=== PATIENT | female | born 1970 | race Two or more races ===

== ENCOUNTER 2025-07-30 22:41 | Inpatient (IN) | payer BC, OTHER ==
[~2025-07-30] VITALS: Ht 160 cm; Wt 110.0 kg
[~2025-07-30 22:41] MED LIST: CARV-214 PO; CARV3.1240 PO; FURO1TAB33 PO; HYDR-5028 PO; POTA-220 PO; SACU1TAB PO; SPIR25TA PO
--- NOTE | 2025-07-30 23:03 | ED.PDOC ---
History of Present Illness HPI Comments 55-year-old female who came to ER for shortness of breath. Patient has a history of hypertension, anxiety and congestive heart failure. Poor compliance to her Lasix. Has been short of breath for the past week progressively worsening. Denies any acute chest pains. No fever noted. Saturating 97% on room air Chief Complaint: Shortness of Breath Time Seen by MD: 23:02 Primary Care Provider: PATOO Reviewed Notes: Nurses Notes Allergies: Coded Allergies: NO KNOWN ALLERGIES (Unverified , 03/24/19) Home Meds Active Scripts Hydroxyzine HCl (Hydroxyzine Hydrochloride) 10 Mg Tab, 10 MG PO BID PRN for 20 Days, #40 TAB Prov:PAYAL HUTCHINSON MD 03/29/19 Potassium Chloride (Klor-Con M20) 20 Meq Tab, 20 MEQ PO DAILY PRN for 20 Days, #20 TAB Prov:PAYAL HUTCHINSON MD 03/29/19 Furosemide (Lasix) 20 Mg Tb, 1 TAB PO DAILY PRN, #30 TAB 5 Refills Prov:PAYAL HUTCHINSON MD 03/29/19 Spironolactone (Aldactone) 25 Mg Tab, 25 MG PO DAILY for 20 Days, #20 TAB Prov:PAYAL HUTCHINSON MD 03/29/19 Carvedilol (COREG) 3.125 Mg Tab, 3.125 MG PO Q12HR for 20 Days, #40 TAB Prov:PAYAL HUTCHINSON MD 03/29/19 Information Source: Patient Mode of Arrival: Ambulatory Past Medical History PAST MEDICAL HISTORY: Anxiety, CHF, Depression, HTN Surgical History: Denies all surgeries 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 Family History Family History: Reviewed,noncontributory to illness Social History Smoker: Non-Smoker Alcohol: Denies ETOH Use Drugs: Denies Drug Use Lives In: Home Constitutional: denies: chills, diaphoresis, fatigue, fever, malaise, sweats, weakness, others EENTM: denies: blurred vision, double vision, ear bleeding, ear discharge, ear drainage, ear pain, ear ringing, eye pain, eye redness, hearing loss, mouth pain, mouth swelling, nasal discharge, nose bleeding, nose congestion, nose pain, photophobia, tearing, throat pain, throat swelling, voice changes, others Respiratory: reports: SOB at rest, shortness of breath, SOB with excertion; denies: cough, hemoptysis, orthopnea, stridor, wheezing, others Cardiovascular: denies: chest pain, dizzy spells, diaphoresis, Dyspnea on exertion, edema, irregular heart beat, left arm pain, lightheadedness, palpitations, PND, syncope, others Gastrointestinal: denies: abdomen distended, abdominal pain, blood streaked bowels, constipated, diarrhea, dysphagia, difficulty swallowing, hematemesis, melena, nausea, poor appetite, poor fluid intake, rectal bleeding, rectal pain, vomiting, others Genitourinary: denies: abnormal vagina bleeding, burning, dyspareunia, dysuria, flank pain, frequency, hematuria, incontinence, pain, , vagina disc harge, urgency, others Neurological: denies: dizziness, fainting, headache, left sided numbness, left sided weakness, numbness, paresthesia, pre-existing deficit, right sided numbness, right sided weakness, seizure, speech problems, tingling, tremors, weakness, others Musculoskeletal: denies: back pain, gout, joint pain, joint swelling, muscle pain, muscle stiffness, neck pain, others Integumetry: denies: bruises, change in color, change in hair/nails, dryness, laceration, lesions, lumps, rash, wounds, others Allergic/Immunocompromised: denies: Difficulty Healing, Frequent Infections, Hives, Itching, others Hematologic/Lymphatic: denies: anemia, blood clots, easy bleeding, easy bruising, swollen glands, others Endocrine: denies: excessive hunger, excessive sweating, excessive thirst, excessive urination, flushing, intolerance to cold, intolerance to heat, unexplained weight gain, unexplained weight loss, others Psychiatric: denies: anxiety, bipolar disorder, depression, hopeless, panic disorder, schizophrenia, sleepless, suicidal, others Physical Exam General Appearance: No Apparent Distress, Normal HEENT: Normal ENT Inspection, Pharynx Normal, TMs Normal Neck: Full Range of Motion, Non-Tender, Normal, Normal Inspection Respiratory: Chest Non-Tender, Lungs Clear, No Accessory Muscle Use, No Respiratory Distress, Normal Breath Sounds Cardiovascular: No Edema, No JVD, No Murmur, No Gallop, Normal Peripheral Pulses, Regular Rate/Rhythm Breast Exam: Deferred Gastrointestinal: No Organomegaly, Non Tender, No Pulsatile Mass, Normal Bowel Sounds, Soft Genitalia: Deferred Pelvic: Deferred Rectal: Deferred Extremities: No calf tenderness, Normal capillary refill, Normal inspection, Normal range of motion, Non-tender, No pedal edema Musculoskeletal : Apperance: Normal Neurologic: Alert, ip/mosaic technician II-XII nml as Tested, No Motor Deficits, Normal Affect, Normal Mood, No Sensory Deficits Cerebellar Function: Normal Reflexes: Normal Skin: Dry, Normal Color, Warm Lymphatic: No Adenopathy Was a procedure done? Was a procedure done?: No Differential Dx Considerations may include: DDX includes but not limited to: asthma, pneumonia, pneumothorax, CHF, coronary ischemia and others X-Ray, Labs, Meds, VS Vital Signs Date Time Temp Pulse Resp B/P (MAP) Pulse Ox O2 Delivery O2 Flow Rate FiO2 07/31/25 00:41 106 22 97 Room Air* 0 21 07/31/25 00:41 98.1 106 22 123/88 (100) 97 98.1 07/30/25 23:58 16 96 Room Air* 0 21 07/30/25 23:45 98.9 87 16 104/66 (79) 96 98.9 07/30/25 23:06 103 07/30/25 22:42 97.6 122 18 144/93 97 97.6 Lab Test 07/31/25 00:46 07/30/25 23:10 Range/Units Troponin I High Sensitivity Pending 128 *H </=34 ng/L White Blood Count 7.0 4.4-10.8 10^3/uL Red Blood Count 4.99 4.0-5.20 10^6/uL Hemoglobin 14.8 12.2-16.2 g/dL Hematocrit 44.6 36.0-46.0 % Mean Corpuscular Volume 89.4 80.0-100.0 fL Mean Corpuscular Hemoglobin 29.6 28.0-32.0 pg Mean Corpuscular Hemoglobin Concent 33.2 32.0-36.0 g/dL Red Cell Distribution Width 14.7 H 11.8-14.3 % Platelet Count 178 140-450 10^3/uL Mean Platelet Volume 9.2 6.9-10.8 fL Neutrophils (%) (Auto) 67.9 37.0-80.0 % Lymphocytes (%) (Auto) 18.9 10.0-50.0 % Monocytes (%) (Auto) 12.2 H 0.0-12.0 % Eosinophils (%) (Auto) 0.2 0.0-7.0 % Basophils (%) (Auto) 0.8 0.0-2.0 % Neutrophils # (Auto) 4.7 1.6-8.6 10 ^3/uL Lymphocytes # (Auto) 1.3 0.4-5.4 10 ^3/uL Monocytes # (Auto) 0.9 0-1.3 10 ^3/uL Eosinophils # (Auto) 0 0-0.8 10 ^3/uL Basophils # (Auto) 0.1 0-0.2 10 ^3/uL Nucleated Red Blood Cells 0.1 % Sodium Level 142 136-145 mmol/L Potassium Level 4.3 3.5-5.1 mmol/L Chloride Level 106 98-107 mmol/L Carbon Dioxide Level 26 20-31 mmol/L Anion Gap 10 5-15 Blood Urea Nitrogen 16 9-23 mg/dL Creatinine 0.91 0.550-1.02 mg/dL Glomerular Filtration Rate Calc 74 >90 mL/min BUN/Creatinine Ratio 17.6 10.0-20.0 Serum Glucose 115 H 74-106 mg/dL Calcium Level 9.0 8.7-10.4 mg/dL Total Bilirubin 2.3 H 0.2-1.0 mg/dL Aspartate Amino Transferase (AST) 29 13-40 U/L Alanine Aminotransferase (ALT) 44 H 7-40 U/L Alkaline Phosphatase 78 46-116 U/L B-Type Natriuretic Peptide 1868.46 0-100 pg/mL Total Protein 6.1 5.7-8.2 g/dL Albumin 4.0 3.2-4.8 g/dL Time of 1ST Reevaluation: 22:59 Reevaluation 1ST: Unchanged Patient Education/Counseling: Diagnosis, Treatment Family Education/Counseling: Diagnosis, Treatment SEPSIS Sepsis Screen Date sepsis recognized/suspect: Jul 30, 2025 Time Sepsis recognized/suspect: 2246 Recent Procedure: No On Antibiotic Therapy: No Respiratory Rate >20: No Heart Rate >90: Yes Temp<36 C (96.8 F) or >38.3 C: No SBP <90 or MAP <65 mmHG: No New Acute Mental Status Change: No Is the patient on CPAP, BIPAP,: No Physician Orders Electrocardigram (07/30/25 22:57) Troponin-I Hs (07/30/25 23:57) Troponin-I Hs (07/31/25 01:57) Chest Xray 1 View (07/30/25 22:57) Vital Signs Date Time Temp Pulse Resp B/P (MAP) Pulse Ox O2 Delivery O2 Flow Rate FiO2 07/31/25 00:41 106 22 97 Room Air* 0 21 07/31/25 00:41 98.1 106 22 123/88 (100) 97 98.1 07/30/25 23:58 16 96 Room Air* 0 21 07/30/25 23:45 98.9 87 16 104/66 (79) 96 98.9 07/30/25 23:06 103 07/30/25 22:42 97.6 122 18 144/93 97 97.6 Laboratory Tests Test 07/30/25 23:10 White Blood Count 7.0 10^3/uL (4.4-10.8) Departure 1 Departure Time of Disposition: 00:52 Impression: Primary Impression: Congestive heart failure Additional Impression: Intermediate coronary syndrome Disposition: ADMITTED INPATIENT Admit to: Med Surg Condition: Guarded Discharged With: Self Comments 55 yo female with h/o CHF now with SOB. CXR shows CHF. BNP elevated. troponin elevated. given aspirin and lasix. patient will need admission for supportive care and further workup Critical Care Note Critical Care Time?: Yes (35 min-critical care time only) Critical care comment: Total critical care time: Approximately 36 minutes Due to a high probability of clinically significant, life threatening deterioration, the patient required my highest level of preparedness to intervene emergently and I personally spent this critical care time directly and personally managing the patient. This critical care time included obtaining a history; examining the patient; pulse oximetry; ordering and review of studies; arranging urgent treatment with development of a management plan; evaluation of patient's response to treatment; frequent reassessment; and, discussions with other providers. This critical care time was performed to assess and manage the high probability of imminent, life-threatening deterioration that could result in multi-organ failure. It was exclusive of separately billable procedures and treating other patients. Stability Stability form required: No Heart Score Heart Score: Heart Score Response (Comments) Value History Slightly Suspicious 0 EKG Normal 0 Age 45-64 1 Risk Factors >3 or Hx ASHD 2 Troponin Normal limit 0 Total 3 I personally scribed for JEANMARIE KENNEDY MD ([email or web address]) on 07/30/25 at 23:02. Electronically submitted by Dhruv Andrea ([email or web address]). JEANMARIE KENNEDY MD Jul 30, 2025 23:02
[2025-07-30 23:20] LABS: Hematocrit 44.6 % (36.0-46.0); Hemoglobin 14.8 g/dL (12.2-16.2); Mean Corpuscular Hemoglobin 29.6 pg (28.0-32.0); Mean Corpuscular Volume 89.4 fL (80.0-100.0); Nucleated Red Blood Cells % 0.1 %
[2025-07-30 23:35] LABS: Albumin 4.0 g/dL (3.2-4.8); Alkaline Phosphatase 78 U/L (46-116); Anion Gap 10 (5-15); BUN/Creatinine Ratio 17.6 (10.0-20.0); Blood Urea Nitrogen 16 mg/dL (9-23); Calcium 9.0 mg/dL (8.7-10.4); Carbon Dioxide 26 mmol/L (20-31); Chloride 106 mmol/L (98-107); Potassium 4.3 mmol/L (3.5-5.1); Sodium 142 mmol/L (136-145); Total Protein 6.1 g/dL (5.7-8.2)
[2025-07-30 23:38] LABS: Alanine Aminotransferase 44 U/L (7-40); Bilirubin, Total 2.3 mg/dL (0.2-1.0); Glucose 115 mg/dL (74-106)
--- NOTE | 2025-07-30 23:56 | DVH ---
CLINICAL HISTORY: SOB. TECHNIQUE: Single frontal view of the chest was obtained. COMPARISON: None available. FINDINGS: Lungs: Mild pulmonary vascular congestion. Otherwise, lungs are clear. No consolidation or alyssa pulmonary edema. Pleura: Pneumothorax or conspicuous pleural effusion. Cardiomediastinal silhouette: Moderately enlarged cardiac silhouette. Normal mediastinal silhouette. Bones: No acute osseous abnormality. Imaged Upper Abdomen: Unremarkable. IMPRESSION: Moderate cardiomegaly with mild pulmonary vascular congestion.
[2025-07-31 00:41] VITALS: PULSE 106; RESP 22; O2SAT 97
[2025-07-31] MEDS: FUROSEMIDE 40 MG/4 ML VIAL IV ONE (00:59)
[2025-07-31] MEDS ORDERED: HYDROcodone-ACET 5/325MG TAB PO PRN (01:00)
[2025-07-31] MEDS ORDERED: NITROGLYCERIN 0.4 MG SL TAB SL PRN (01:00)
[2025-07-31] MEDS ORDERED: ONDANSETRON HCL 4 MG/2 ML VIAL IV PRN (01:00)
[2025-07-31] MEDS ORDERED: MORPHINE SULFATE INJ 2 MG/ml SYRG IV PRN (01:00)
[2025-07-31] MEDS ORDERED: ACETAMINOPHEN 325 MG TAB PO PRN (01:00)
[2025-07-31] MEDS ORDERED: DOCUSATE SOD 100 MG CAP PO PRN (01:00)
--- NOTE | 2025-07-31 01:12 | DVHHP2 ---
History of Present Illness Reason for Visit: Acute exacerbation of congestive failure History of Present Illness The patient is a 55-year-old female with past medical history of depression, hypertension, anxiety, and congestive heart failure who presented to [facility] ED with complaint of shortness of breaths. Patient reports that she has been experiencing difficulty breathing, shortness of breaths at rest, increased work of breathing, getting worse that prompted this visit. Patient was seen and evaluated in the ED, laboratory data shows WBC 7.0, platelets 178, sodi um 142, potassium 4.3, BUN 16, creatinine 0.91, GFR 74, glucose 115, calcium 9.0, BNP 1868.46, troponin 128, total bilirubin 2.3, AST 29, ALT 44, blood pressure 123/88, heart rate 106, temperature 98.1 F, O2 saturation 97% on oxygen. Chest x-ray revealing moderate cardiomegaly with mild pulmonary vascular congestion. Patient was started on IV Lasix, please see medication orders se ction in the computer. On my assessment, patient denies chest pain, no headache, dizziness, diaphoresis, currently on oxygen, no diarrhea, nausea, vomiting, fever, no chills. Patient was admitted for further evaluation and medical management. Past Medical History Anxiety, CHF, Depression, HTN Past Surgical History Denies all surgeries Family History Reviewed, noncontributory to the management of this case. Past Social History The patient lives at home, denies smoking, alcohol or illicit drugs abuse. Review of Systems Constitutional: Yes: Weakness; No: Fever, Chills, Sweats, Malaise, Other Eyes: No: Pain, Vision change, Conjunctivae inflammation, Eyelid inflammation, Other, Redness ENT: No: Ear pain, Ear discharge, Nose pain, Nose discharge, Nose congestion, Mouth pain, Mouth swelling, Throat pain, Throat swelling, Other Respiratory: Shortness of breath, SOB with excertion, Other (SOB at rest); No: Cough, Dry, Wheezing, Hemoptysis, Pleuritic Pain, Sputum, Wheezing Cardiovascular: No: Chest Pain, Palpitations, Orthopnea, Paroxysmal Noc. Dyspnea, Edema, Lt Headedness, Other Gastrointestinal: No: Nausea, Vomiting, Abdominal Pain, Diarrhea, Constipation, Melena, Hematochezia, Other Genitourinary: No Dysuria, No Frequency, No Incontinence, No Hematuria, No Retention, No Other Musculoskeletal: No: other, neck pain, shoulder pain, arm pain, back pain, hand pain, leg pain, foot pain Skin: No: Rash, Lesions, Jaundice, Bruising, Other Neurological: No: Weakness, Numbness, Incoordination, Change in speech, Confusion, Seizures, Other Allergies: Coded Allergies: NO KNOWN ALLERGIES (Unverified , 03/24/19) Exam Vital Signs Vital Signs Date Time Temp Pulse Resp B/P (MAP) Pulse Ox O2 Delivery O2 Flow Rate FiO2 07/31/25 00:41 106 22 97 Room Air* 0 21 07/31/25 00:41 98.1 123/88 (100) 98.1 General Appearance: Alert, Oriented X3, Cooperative, No acute distress HEENT: Atraumatic, PERRLA, EOMI, Mucous membr. moist/pink Respiratory: Normal air movement, Other (Diminished breath sounds) Cardiovascular: Regular rate, Normal S1, Normal S2, No murmurs Abdominal: Normal bowel sounds, Soft, No tenderness, No hepatospenomegaly, No masses Extremities: No clubbing, No cyanosis, No edema, Normal pulses, No tenderness/swelling Skin: No rashes, No breakdown, No significant lesion Neuro: Normal speech, Normal tone, Sensation intact, Cranial nerves 3-12 NL, Reflexes 2+, Other (Generalized weakness) Psych/Mental Status: Mental status NL, Mood NL Labs/Xrays Labs Test 07/31/25 00:46 07/30/25 23:10 Range/Units White Blood Count 7.0 4.4-10.8 10^3/uL Red Blood Count 4.99 4.0-5.20 10^6/uL Hemoglobin 14.8 12.2-16.2 g/dL Hematocrit 44.6 36.0-46.0 % Mean Corpuscular Volume 89.4 80.0-100.0 fL Mean Corpuscular Hemoglobin 29.6 28.0-32.0 pg Mean Corpuscular Hemoglobin Concent 33.2 32.0-36.0 g/dL Red Cell Distribution Width 14.7 H 11.8-14.3 % Platelet Count 178 140-450 10^3/uL Mean Platelet Volume 9.2 6.9-10.8 fL Neutrophils (%) (Auto) 67.9 37.0-80.0 % Lymphocytes (%) (Auto) 18.9 10.0-50.0 % Monocytes (%) (Auto) 12.2 H 0.0-12.0 % Eosinophils (%) (Auto) 0.2 0.0-7.0 % Basophils (%) (Auto) 0.8 0.0-2.0 % Neutrophils # (Auto) 4.7 1.6-8.6 10 ^3/uL Lymphocytes # (Auto) 1.3 0.4-5.4 10 ^3/uL Monocytes # (Auto) 0.9 0-1.3 10 ^3/uL Eosinophils # (Auto) 0 0-0.8 10 ^3/uL Basophils # (Auto) 0.1 0-0.2 10 ^3/uL Nucleated Red Blood Cells 0.1 % Sodium Level 142 136-145 mmol/L Potassium Level 4.3 3.5-5.1 mmol/L Chloride Level 106 98-107 mmol/L Carbon Dioxide Level 26 20-31 mmol/L Anion Gap 10 5-15 Blood Urea Nitrogen 16 9-23 mg/dL Creatinine 0.91 0.550-1.02 mg/dL Glomerular Filtration Rate Calc 74 >90 mL/min BUN/Creatinine Ratio 17.6 10.0-20.0 Serum Glucose 115 H 74-106 mg/dL Calcium Level 9.0 8.7-10.4 mg/dL Total Bilirubin 2.3 H 0.2-1.0 mg/dL Aspartate Amino Transferase (AST) 29 13-40 U/L Alanine Aminotransferase (ALT) 44 H 7-40 U/L Alkaline Phosphatase 78 46-116 U/L B-Type Natriuretic Peptide 1868.46 0-100 pg/mL Total Protein 6.1 5.7-8.2 g/dL Albumin 4.0 3.2-4.8 g/dL PATIENT: ISABEL MCINTYRE ACCT: [id number] UNIT: [id number] : 1970 LOC: ER ROOM / BED: / AGE / SEX: 55 / F ADM STATUS: REG ER SERVICE [id number] ORDERING PHYSICIAN: JEANMARIE KENNEDY MD PROCEDURE(s): CXR1 - CHEST XRAY 1 VIEW REASON: SOB ORDER NUMBER(s): [id number], ACCESSION NUMBER(s): [id number] CLINICAL HISTORY: SOB. TECHNIQUE: Single frontal view of the chest was obtained. COMPARISON: None available. FINDINGS: Lungs: Mild pulmonary vascular congestion. Otherwise, lungs are clear. No consolidation or alyssa pulmonary edema. Pleura: Pneumothorax or conspicuous pleural effusion. Cardiomediastinal silhouette: Moderately enlarged cardiac silhouette. Normal mediastinal silhouette. Bones: No acute osseous abnormality. Imaged Upper Abdomen: Unremarkable. IMPRESSION: Moderate cardiomegaly with mild pulmonary vascular congestion. SEPSIS Sepsis Screen Date sepsis recognized/suspect: Jul 30, 2025 Time Sepsis recognized/suspect: 004 Recent Procedure: No On Antibiotic Therapy: No Respiratory Rate >20: Yes Heart Rate >90: Yes (MD aware) Temp<36 C (96.8 F) or >38.3 C: No SBP <90 or MAP <65 mmHG: No New Acute Mental Status Change: No Is the patient on CPAP, BIPAP,: No Physician Orders Electrocardigram (07/30/25 22:57) Troponin-I Hs (07/30/25 23:57) Troponin-I Hs (07/31/25 01:57) Chest Xray 1 View (07/30/25 22:57) Complete Blood Count (07/31/25 04:00) Comprehensive Metabolic Panel (07/31/25 04:00) Carvedilol Tablet (Coreg Tablet) (07/31/25 10:00) Aspirin Chewable Tablet (07/31/25 10:00) Furosemide Injection (Lasix Injection) (07/31/25 10:00) Admit (07/31/25 00:54) Allergies (07/31/25 00:54) Code Status (07/31/25 00:54) Sodium Chloride Lock (Saline Lock Ns) (07/31/25 06:00) Oxygen Per Hour (07/31/25 00:54) Hydrocodone-Acet 5/325mg Tab ([place] 5/32 (07/31/25 01:00) Ondansetron Hcl (Zofran) (07/31/25 01:00) Docusate Sodium Capsule (Colace Capsule) (07/31/25 01:00) Complete Blood Count (08/01/25 04:00) Comprehensive Metabolic Panel (08/01/25 04:00) Cardiac Diet-2gna,Lofat,Lochol (07/31/25 Breakfast) Echo 2d Mode Cardiac Dop (07/31/25 00:54) Condition: Serious (07/31/25 00:54) Acetaminophen Tablet (Tylenol Tablet) (07/31/25 01:00) Bedrest With Bathroom Privileg (07/31/25 00:54) Sequential Compression Device (07/31/25 ) Nitroglycerin Sublingual (Ntrostat Subli (07/31/25 01:00) Morphine Sulfate Injection (07/31/25 01:00) Stat Ekg For Chest Pain (07/31/25 00:54) Notify Md Of Changes From Base (07/31/25 00:54) Pharmaceutical Worker For 24 Hours (07/31/25 00:54) Emergency Dysrhythmia Protocol (07/31/25 00:54) Rhythm Strips Once Every Shift (07/31/25 00:54) Oxygen By Nasal Cannula (07/31/25 00:54) Vital Signs Date Time Temp Pulse Resp B/P (MAP) Pulse Ox O2 Delivery O2 Flow Rate FiO2 07/31/25 00:41 106 22 97 Room Air* 0 21 07/31/25 00:41 98.1 106 22 123/88 (100) 97 98.1 07/30/25 23:58 16 96 Room Air* 0 21 07/30/25 23:45 98.9 87 16 104/66 (79) 96 98.9 07/30/25 23:06 103 07/30/25 22:42 97.6 122 18 144/93 97 97.6 Laboratory Tests Test 07/30/25 23:10 White Blood Count 7.0 10^3/uL (4.4-10.8) Assessment/Plan Assessment/Plan Acute exacerbation of congestive heart failure Elevated troponin Generalized weakness Plan 1. Admit to telemetry unit 2. Breathing treatment 3. Pain control management 4. Management of fluids and electrolytes 5. Consultation for hospitalist/cardiology 6. Diagnostic tests chest x-ray 7. DVT prophylaxis-on aspirin 8. Repeat labs CBC, CMP in a.m. 9. Continue with current medical management 10. Treatment plan discussed with patient and RN. Patient verbalized understanding. Plan discussed with: Patient, Other (RN) My Orders Orders - ABY PEOPLES DNP Procedure Category Date Status Time Complete Blood Count LAB 07/31/25 Verified 04:00 Comprehensive LAB 07/31/25 Verified Metabolic Panel 04:00 Carvedilol Tablet PHA 07/31/25 Verified (Coreg Tablet) 10:00 Aspirin Chewable PHA 07/31/25 Verified Tablet 10:00 Furosemide Injection PHA 07/31/25 Verified (Lasix Injection) 10:00 Admit ADMIT 07/31/25 Verified 00:54 Allergies [facility] 07/31/25 Verified 00:54 Code Status CODE 07/31/25 Verified 00:54 Sodium Chloride Lock PHA 07/31/25 Verified (Saline Lock Ns) 06:00 Oxygen Per Hour RT 07/31/25 Verified 00:54 Hydrocodone-Acet PHA 07/31/25 Verified 5/325mg Tab ([place] 01:00 Ondansetron Hcl PHA 07/31/25 Verified (Zofran) 01:00 Docusate Sodium PHA 07/31/25 Verified Capsule (Colace 01:00 Complete Blood Count LAB 08/01/25 Verified 04:00 Comprehensive LAB 08/01/25 Verified Metabolic Panel 04:00 Cardiac DIET 07/31/25 Verified Diet-2gna,Lofat,Lochol Breakfast Echo 2d Mode Cardiac US 07/31/25 Verified DOP 00:54 Condition: Serious [facility] 07/31/25 Verified 00:54 Acetaminophen Tablet [facility] 07/31/25 Verified (Tylenol Tablet) 01:00 Bedrest With Bathroom [facility] 07/31/25 Verified Privileg 00:54 Sequential [facility] 07/31/25 Verified Compression Device Nitroglycerin [facility] 07/31/25 Verified Sublingual (Ntrostat 01:00 Morphine Sulfate PHA 07/31/25 Verified Injection 01:00 Stat Ekg For Chest [facility] 07/31/25 Verified Pain 00:54 Notify Of Changes [facility] 07/31/25 Verified From Base 00:54 Pharmaceutical Worker For [facility] 07/31/25 Verified 24 Hours 00:54 Emergency Dysrhythmia [facility] 07/31/25 Verified Protocol 00:54 Rhythm Strips Once [facility] 07/31/25 Verified Every Shift 00:54 Oxygen By Nasal RT 07/31/25 Verified Cannula 00:54 Problem List: (1) Acute exacerbation of congestive heart failure (2) Elevated troponin (3) Generalized weakness Date of Service: Jul 31, 2025 Billing Provider: ABY PEOPLES DNP Common Visit Codes: [id number] INP/OBS CARE (HIGH) ABY PEOPLES DNP Jul 31, 2025 01:11
[2025-07-31 01:53] LABS: Urine Protein, UAD TRACE (Negative)
[2025-07-31 05:32] LABS: Hematocrit 43.1 % (36.0-46.0); Hemoglobin 14.5 g/dL (12.2-16.2); Mean Corpuscular Hemoglobin 29.7 pg (28.0-32.0); Mean Corpuscular Volume 88.2 fL (80.0-100.0); Nucleated Red Blood Cells % 0.1 %
[2025-07-31 05:46] LABS: Albumin 4.1 g/dL (3.2-4.8); Alkaline Phosphatase 68 U/L (46-116); Anion Gap 10 (5-15); BUN/Creatinine Ratio 15.9 (10.0-20.0); Blood Urea Nitrogen 14 mg/dL (9-23); Calcium 9.0 mg/dL (8.7-10.4); Carbon Dioxide 29 mmol/L (20-31); Chloride 104 mmol/L (98-107); Glucose 97 mg/dL (74-106); Potassium 3.7 mmol/L (3.5-5.1); Sodium 143 mmol/L (136-145); Total Protein 6.1 g/dL (5.7-8.2)
[2025-07-31 05:54] LABS: Alanine Aminotransferase 41 U/L (7-40); Bilirubin, Total 2.8 mg/dL (0.2-1.0)
[2025-07-31] MEDS: SODIUM CHLOR 0.9% PF (SALINE LOCK) 10ML VIAL/SYR IV SCH (06:04)
[2025-07-31 07:30] VITALS: PULSE 86; RESP 14; O2SAT 95
[2025-07-31] MEDS: FUROSEMIDE 40 MG/4 ML VIAL IV SCH ×2 (09:37→22:00)
[2025-07-31] MEDS: CARVEDILOL 3.125 MG TAB PO SCH (09:37)
[2025-07-31 11:42] LABS: Thyroid Stimulating Hormone 2.41 uIU/mL (0.55-4.78)
[2025-07-31] MEDS: MAGNESIUM SULFATE 1GM/100ML 100 ML IV SCH (13:45)
[2025-07-31 13:50] LABS: Amphetamine Screen, Urine Neg (NEGATIVE); Barbiturate Scree,Urine Neg (NEGATIVE); Benzodiazephine Screen, Urine Neg (NEGATIVE); Cannabinoid Screen, Urine Neg (NEGATIVE); Cocaine Screen, Urine Neg (NEGATIVE); Opiate Scree,Urine Neg (NEGATIVE); Phencyclidine Screen, Urine Neg (NEGATIVE)
[2025-07-31] MEDS: ENOXAPARIN SOD 40 MG/0.4 ML SYRINGE SC SCH (16:30)
--- NOTE | 2025-07-31 16:30 | DVHPNRES ---
Progress Note Date Seen: Jul 31, 2025 Resident Creating Document: SACHI ARIZA RESIDENT Medical Necessity Reason Pt with a Central, PICC or Fol: No Subjective Review of Systems Patient is 55 years old female with a past medical history of HFrEF 25-30%, hypertension, depression, anxiety came with a complaint of shortness of breaths Functional Class III. As per patient she has been having worsening shortness of breaths for last 1 week associated with PND and orthopnea. Patient also reported palpitation and and nonproductive cough. On further inquiry patient reported bilateral leg swelling for last more than 1 week. Patient denied any fever, chest pain, acute diarrhea, acute joint redness, dysarthria or change in vision. Patient had echo done in March, which revealed EF 25-30%, global hypokinesia. Severe LV and LA and mild RV dilation. Mild eccentric septal hypertrophy.Grade 2 diastolic dysfunction. RVSP 36. Initial lab workup revealed troponin I > 128> 123> 129, BNP 1868, serum bilirubin 2.8, ALT 44, hemoglobin A1c 5.7, TSH 2.41. UDS negative, urinalysis negative. CXR- Moderate cardiomegaly with mild pulmonary vascular congestion. PMH-HFrEF 25-30%, hypertension, depression, anxiety PSH- no surgery per patient Allergy- and kidney Personal History/ Social History- denies smoking/alcoholism/drug abuse, lives with the ROS Cardiovascular- palpitation/PND/orthopnea/shortness of breath Respiratory shortness of breaths, nonproductive cough Gastrointestinal- denies any rectal bleeding, nausea or vomiting Musculoskeletal-denies acute joint swelling or tenderness or redness Neurological- denies acute dysarthria, dysphagia, change in vision Psychiatry- denies depression or SI or HI Skin- denies acute rash or purpura Patient was seen today at bedside Labs and chart reviewed Patient reported feeling better today Pending cardiology consult if patient needs left heart catheterization or not Echo 2D dilated cardiomyopathy, LVEF 20%, major LV systolic dysfunction, severe MR, moderate TR, severe pulmonary hypertension, RVSP 48. Patient Lasix 40 mg IV b.i.d. Restarted patient's home medication carvedilol and Entresto Ordered Jardiance Strict I&O Fluid restriction 1200 mL per 24 hour Objective vital signs Vital Sign Date Time Temp Pulse Resp B/P (MAP) Pulse Ox O2 Delivery O2 Flow Rate FiO2 07/31/25 15:35 85 18 92/61 (71) 98 07/31/25 07:30 97.6 97.6 07/31/25 07:30 Room Air* 0 21 medications Current Medications Medications Dose Ordered Sig/Suzy Route Start Time Stop Time Status Last Admin Dose Admin Carvedilol 3.125 mg Q12HR PO 07/31/25 10:00 07/31/25 09:37 3.125 MG Aspirin 81 mg DAILY PO 07/31/25 10:00 07/31/25 09:37 81 MG Sodium Chloride 10 ml Q8HR IV 07/31/25 06:00 07/31/25 14:02 10 ML Acetaminophen/ Hydrocodone Bitart 1 tab Q4HP PRN PO 07/31/25 01:00 Ondansetron HCl 4 mg Q4HP PRN IV 07/31/25 01:00 Docusate Sodium 100 mg BIDPRN PRN PO 07/31/25 01:00 Acetaminophen 650 mg Q6HP PRN PO 07/31/25 01:00 Nitroglycerin 0.4 mg Q5MINP PRN SL 07/31/25 01:00 Morphine Sulfate 2 mg Q30M PRN IV 07/31/25 01:00 Spironolactone 25 mg DAILY PO 08/01/25 10:00 Sacubitril/ Valsartan 1 tab BID PO 07/31/25 22:00 Empaglifozin 10 mg DAILY PO 08/01/25 10:00 Furosemide 40 mg BID IV 07/31/25 22:00 Examination General examination- awake, alert HEENT- PEERLA, no acute nasal discharge Cardiovascular- S1-S2 audible, rate and rhythm regular, no murmur Respiratory- bilateral lung crackles++ Gastrointestinal-nontender, bowel sound+. Nondistended Musculoskeletal-no acute joint swelling or tenderness or redness Lower extremity- + bilateral leg edema+ Neurological- cranial nerves intact, no acute dysarthria or dysphagia Psychiatry- denies depression or SI or HI Skin- no acute rash or purpura laboratory and microbiology Laboratory Tests 07/31/25 04:45 Test 07/31/25 04:45 Range/Units Serum Glucose 97 74-106 mg/dL Problem List/Assessment/Plan Problem List/Assessment/Plan Assessment and plan # acute hypoxic respiratory failure likely due to acute on chronic HFrEF # acute on chronic heart failure likely due to HFrEF # bilateral leg edema likely due to above -EKG no acute ST-T wave changes -trop I 128> 133> 129 -BNP 1867 -previous echo March,- EF 25-30%, global hypokinesia. Severe LV and LA and mild RV dilation. Mild eccentric septal hypertrophy.Grade 2 diastolic dysfunction. RVSP 36. -Echo 2D dilated cardiomyopathy, LVEF 20%, major LV systolic dysfunction, severe MR, moderate TR, severe pulmonary hypertension, RVSP 48. -pending cardiology consult -on Jardiance/spironolactone/Entresto/carvedilol -continue Lasix 40 IV b.i.d. -strict I&O -fluid restriction 1200 mL/24 hour # NSTEMI type 2 likely due to demand lead ischemia -continue current conservative manage # hypertension -continue Entresto and carvedilol, spironolactone -monitor BP # transaminitis -pending hepatitis panel -ordered liver ultrasound for further evaluation # depression # anxiety -continue monitoring clinically Goals of care, Code status full code; discussed with >15 minutes PUD prophylaxis: Pantoprazole DVT prophylaxis: Lovenox Plan discussed with Dr. Rivero , nursing staff, Total time spent on patient evaluation, chart review, assessment and plan, discussion discussion >35 minutes Plan discussed with: Patient, Other (RN) My Orders My Orders Orders - SACHI ARIZA RESIDENT Procedure Category Date Status Time Vitamin B12 LAB 07/31/25 In Process 10:28 Vitamin D, 25-Hydroxy LAB 07/31/25 In Process 10:28 Folate (Folic Acid) LAB 07/31/25 In Process 10:28 Spironolactone PHA 08/01/25 In Process (Aldactone) 10:00 Sacubitril-Valsartan PHA 07/31/25 In Process (Entresto 24-26 Mg 22:00 Empagliflozin PHA 08/01/25 In Process (Jardiance) 10:00 * Cardiology Consult CONS 07/31/25 Transmitted 10:41 Furosemide Injection PHA 07/31/25 In Process (Lasix Injection) 22:00 Strict I & O MARCELA 07/31/25 In Process 14:47 Maintain Fluid MARCELA 07/31/25 In Process Restrictions 14:47 Visit Coding STANDARD RES Billing Provider: KATHERINE RIVERO MD Date of Service if different f: Jul 31, 2025 Common Visit Codes: [id number] INP/OBS CARE(HIGH) SACHI ARIZA RESIDENT Jul 31, 2025 16:30
[2025-07-31 16:35] VITALS: BP 100/77; PULSE 90; RESP 20; TEMP 98.4; O2SAT 98
--- NOTE | 2025-07-31 17:17 | DVHSR ---
APPROVED REPORT EXAM: Two-dimensional and M-mode echocardiogram with Doppler and color Doppler. Blood Pressure: 107/71 mmHg INDICATION CHF exacerbation, unspecified RISK FACTORS Obesity: Height: 5'3", Weight: 248 DIMENSIONS LVDd 6.9 (3.8-5.7cm) LA (2D) 5.0 (1.9-4.0cm) Aortic Root 2.7 (2.0-3.7cm) LVDs 6.2 (2.5-4.0cm) LA (MM) (1.9-4.0cm) Aortic Cusp Exc 1.5 (1.5-2.0cm) EF (%) 20.0 (55-70%) Rt. Atrium 4.0 (1.9-4.0cm) Asc. Aorta cm IVSd 0.7 (0.7-1.1cm) RV (D) (1.8-2.4cm) PWd 0.7 (0.7-1.1cm) Mitral Valve Mitral Mitral Stenosis E wave 1.39m/s MV Mean GR. mmHg A wave 0.60m/s MV Peak GR. mmHg E/A ratio 2.3 2D MVA cm2 DECEL Time 224ms PRESS 1/2 Time ms Aortic Valve Aortic Valve Aortic Stenosis V1 0.77m/s AO Mean GR. 6mmHg V2 1.68m/s AO Peak GR. 11mmHg LVOT Diameter 2.0 (1.8-2.4cm) Doppler MORALES 1.44cm2 Pulmonic Valve V2 1.02m/s Tricuspid Valve TR Velocity 3.34m/s RVSP 48mmHg Other Information Technically limited study due to body habitus. Conclusion DILATED ALL CARDIAC CHAMBERS MAJOR LV SYSTOLIC DYSFUNCTION LV EF IS ONLY 20% SEVERE MR MODERATE DEGREE TR SEVERE PULMONARY HYPERTENSION RVSP IS 48 MM F HG AND IS CONSIDERED TO BE VERY HIGH IN VIEW OF LOW EF NO EFFUSION
[2025-07-31] MEDS ORDERED: CHOL20007 PO (18:56)
[2025-07-31] MEDS ORDERED: ATOR20TA50 PO (18:56)
--- NOTE | 2025-07-31 19:54 | DVH ---
INDICATION: ENCEPHALITIS, RULE OUT CIRRHOSIS/STEATOSIS TECHNIQUE: Multiple real-time sonographic images of the abdomen were obtained. COMPARISON: None FINDINGS: The liver is homogenous in echogenicity. The liver measures 14.1 cm. No intrahepatic biliary ductal dilatation is noted. The gallbladder wall measures 0.47 cm and is mildly thickened. Questionable shadowing noted from the gallbladder. The common duct Not visible cm and is unremarkable. No pericholecystic fluid is noted. The right kidney measures 11 cm. No hydronephrosis. The pancreas is not well visualized due to obscuration from bowel gas. The visualized portions of the IVC and aorta are grossly unremarkable. IMPRESSION: 1. Common bile duct not visualized. 2. Mild gallbladder wall thickening with acoustic shadowing coming from the gallbladder fossa correlate for history of cholecystectomy. Negative sonographic chavez's sign 3. Right kidney measures 11 cm in length and there is no hydronephrosis or nephrolithiasis.
[2025-07-31 20:00] VITALS: RESP 18
[2025-07-31 21:00] VITALS: BP 87/60; PULSE 77; RESP 17; TEMP 98.4; O2SAT 98
--- NOTE | 2025-07-31 21:05 | ECG ---
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
[2025-07-31] MEDS: SACUBITRIL-VALSARTAN 24mg/26mg TAB PO SCH (22:00)
--- NOTE | 2025-07-31 23:38 | DVHINCON2 ---
Date of service: Jul 31, 2025 Referring Physician Conner Reason for Consultation HF History of Present Illness This is a 55-year-old female with a past medical history of depression, hypertension, anxiety, and congestive heart failure who presented to the ED with a complaint of shortness of breath. Patient reports that she has been experiencing difficulty breathing, shortness of breaths at rest, increased work of breathing. 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 Chest x-ray revealed moderate cardiomegaly with mild pulmonary vascular congestion. Patient was admitted to the hospital. I am asked to consult on this patient. Family History: FH: myocardial infarction G8 MOTHER, Onset:Unknown FHx: supraventricular tachycardia G8 FATHER, Onset:Unknown Allergies: Coded Allergies: NO KNOWN ALLERGIES (Unverified , 03/24/19) Home Meds Active Scripts Hydroxyzine HCl (Hydroxyzine Hydrochloride) 10 Mg Tab, 10 MG PO BID PRN for 20 Days, #40 TAB Prov:PAYAL HUTCHINSON MD 03/29/19 Potassium Chloride (Klor-Con M20) 20 Meq Tab, 20 MEQ PO DAILY PRN for 20 Days, #20 TAB Prov:PAYAL HUTCHINSON MD 03/29/19 Furosemide (Lasix) 20 Mg Tb, 1 TAB PO DAILY PRN, #30 TAB 5 Refills Prov:PAYAL HUTCHINSON MD 03/29/19 Spironolactone (Aldactone) 25 Mg Tab, 25 MG PO DAILY for 20 Days, #20 TAB Prov:PAYAL HUTCHINSON MD 03/29/19 Carvedilol (COREG) 3.125 Mg Tab, 3.125 MG PO Q12HR for 20 Days, #40 TAB Prov:PAYAL HUTCHINSON MD 03/29/19 Reported Medications Cholecalciferol (VITAMIN D3) 2,000 Unit Tab, 1 TAB PO DAILY, #30 TAB 5 Refills 07/31/25 Atorvastatin Calcium (ATORVASTATIN CALCIUM) 20 Mg Tab, 1 TAB PO DAILY, #30 TAB 5 Refills 07/31/25 Sacubitril-Valsartan (Entresto 24-26 mg) 1 Tab Tab, 1 TAB PO, TAB 07/31/25 Current Medications Current Medications Medications (Trade) Dose Ordered Sig/Suzy Route PRN Reason Start Time Stop Time Status Last Admin Carvedilol (Coreg Tablet) 3.125 mg Q12HR PO 07/31/25 10:00 07/31/25 09:37 Aspirin 81 mg DAILY PO 07/31/25 10:00 07/31/25 09:37 Furosemide (Lasix Injection) 40 mg DAILY IV 07/31/25 10:00 07/31/25 12:21 DC 07/31/25 09:37 Sodium Chloride (Saline Lock N[place]) 10 ml Q8HR IV 07/31/25 06:00 07/31/25 14:02 Acetaminophen/ Hydrocodone Bitart ([place] 5/325MG Tab) 1 tab Q4HP PRN PO MODERATE PAIN (4-6 PAIN SCALE) 07/31/25 01:00 Ondansetron HCl (Zofran) 4 mg Q4HP PRN IV NAUSEA / VOMITING 07/31/25 01:00 Docusate Sodium (Colace Capsule) 100 mg BIDPRN PRN PO FOR CONSTIPATION 07/31/25 01:00 Acetaminophen (Tylenol Tablet) 650 mg Q6HP PRN PO PAIN SCALE 1-3 OR TEMP>100.4 07/31/25 01:00 Nitroglycerin (Ntrostat Sublingual) 0.4 mg Q5MINP PRN SL FOR CHEST PAIN 07/31/25 01:00 Morphine Sulfate 2 mg Q30M PRN IV FOR CHEST PAIN 07/31/25 01:00 Spironolactone (Aldactone) 25 mg DAILY PO 08/01/25 10:00 Sacubitril/ Valsartan (Entresto 24-26 Mg tab) 1 tab BID PO 07/31/25 22:00 Empaglifozin (Jardiance) 10 mg DAILY PO 08/01/25 10:00 Magnesium Sulfate/ Dextrose 100 ml @ 100 mls/hr Q1HR IV 07/31/25 13:00 07/31/25 14:59 DC 07/31/25 15:00 Furosemide (Lasix Injection) 40 mg BID IV 07/31/25 22:00 Enoxaparin Sodium (Lovenox) 40 mg DAILY SC 07/31/25 16:30 Review of Systems Constitutional: denies: chills, diaphoresis, fatigue, fever, malaise, sweats, weakness, others EENTM: denies: blurred vision, double vision, ear bleeding, ear discharge, ear drainage, ear pain, ear ringing, eye pain, eye redness, hearing loss, mouth pain, mouth swelling, nasal discharge, nose bleeding, nose congestion, nose pain, photophobia, tearing, throat pain, throat swelling, voice changes, others Respiratory: reports: SOB at rest, shortness of breath, SOB with excertion; denies: cough, hemoptysis, orthopnea, stridor, wheezing, others Cardiovascular: denies: chest pain, dizzy spells, diaphoresis, Dyspnea on exertion, edema, irregular heart beat, left arm pain, lightheadedness, palpitations, PND, syncope, others Gastrointestinal: denies: abdomen distended, abdominal pain, blood streaked bowels, constipated, diarrhea, dysphagia, difficulty swallowing, hematemesis, melena, nausea, poor appetite, poor fluid intake, rectal bleeding, rectal pain, vomiting, others Genitourinary: denies: abnormal vagina bleeding, burning, dyspareunia, dysuria, flank pain, frequency, hematuria, incontinence, pain, , vagina discharge, urgency, others Neurological: denies: dizziness, fainting, headache, left sided numbness, left sided weakness, numbness, paresthesia, pre-existing deficit, right sided numbn ess, right sided weakness, seizure, speech problems, tingling, tremors, weakness, others Musculoskeletal: denies: back pain, gout, joint pain, joint swelling, muscle pain, muscle stiffness, neck pain, others Integumetry: denies: bruises, change in color, change in hair/nails, dryness, laceration, lesions, lumps, rash, wounds, others Allergic/Immunocompromised: denies: Difficulty Healing, Frequent Infections, Hives, Itching, others Hematologic/Lymphatic: denies: anemia, blood clots, easy bleeding, easy bruising, swollen glands, others Endocrine: denies: excessive hunger, excessive sweating, excessive thirst, excessive urination, flushing, intolerance to cold, intolerance to heat, unexplained weight gain, unexplained weight loss, others Psychiatric: denies: anxiety, bipolar disorder, depression, hopeless, panic disorder, schizophrenia, sleepless, suicidal, others Vital Signs Vital Signs Date Time Temp Pulse Resp B/P (MAP) Pulse Ox O2 Delivery O2 Flow Rate FiO2 07/31/25 21:00 98.4 77 17 87/60 (69) 98 98.4 07/31/25 20:00 Room Air* 0 21 Physical Exam GENERAL: Alert and oriented x 3. No acute distress. EYES: PERRL, EOMI. Anicteric. HENT: Moist mucous membranes. LUNGS: Clear to auscultation bilaterally. CARDIOVASCULAR: Regular rate and rhythm. ABDOMEN: Soft, nontender and nondistended. EXTREMITIES: No edema. NEUROLOGIC: No focal neurological deficits. SKIN: Warm, dry. Labs/Diagnostic Data Labs Test 07/31/25 18:00 07/31/25 04:45 07/31/25 02:16 07/31/25 01:41 Range/Units White Blood Count 5.7 4.4-10.8 10^3/uL Red Blood Count 4.89 4.0-5.20 10^6/uL Hemoglobin 14.5 12.2-16.2 g/dL Hematocrit 43.1 36.0-46.0 % Mean Corpuscular Volume 88.2 80.0-100.0 fL Mean Corpuscular Hemoglobin 29.7 28.0-32.0 pg Mean Corpuscular Hemoglobin Concent 33.7 32.0-36.0 g/dL Red Cell Distribution Width 14.5 H 11.8-14.3 % Platelet Count 150 140-450 10^3/uL Mean Platelet Volume 9.4 6.9-10.8 fL Neutrophils (%) (Auto) 63.1 37.0-80.0 % Lymphocytes (%) (Auto) 22.9 10.0-50.0 % Monocytes (%) (Auto) 13.6 H 0.0-12.0 % Eosinophils (%) (Auto) 0.1 0.0-7.0 % Basophils (%) (Auto) 0.3 0.0-2.0 % Neutrophils # (Auto) 3.6 1.6-8.6 10 ^3/uL Lymphocytes # (Auto) 1.3 0.4-5.4 10 ^3/uL Monocytes # (Auto) 0.8 0-1.3 10 ^3/uL Eosinophils # (Auto) 0 0-0.8 10 ^3/uL Basophils # (Auto) 0 0-0.2 10 ^3/uL Nucleated Red Blood Cells 0.1 % Sodium Level 143 136-145 mmol/L Potassium Level 3.7 3.5-5.1 mmol/L Chloride Level 104 98-107 mmol/L Carbon Dioxide Level 29 20-31 mmol/L Anion Gap 10 5-15 Blood Urea Nitrogen 14 9-23 mg/dL Creatinine 0.88 0.550-1.02 mg/dL Glomerular Filtration Rate Calc 77 >90 mL/min BUN/Creatinine Ratio 15.9 10.0-20.0 Serum Glucose 97 74-106 mg/dL Hemoglobin A1c 5.7 <5.7 % A1C Calcium Level 9.0 8.7-10.4 mg/dL Magnesium Level 1.6 1.6-2.6 mg/dL Total Bilirubin 2.8 H 0.2-1.0 mg/dL Aspartate Amino Transferase (AST) 25 13-40 U/L Alanine Aminotransferase (ALT) 41 H 7-40 U/L Alkaline Phosphatase 68 46-116 U/L Lactate Dehydrogenase 290 H 120-246 U/L Total Protein 6.1 5.7-8.2 g/dL Albumin 4.1 3.2-4.8 g/dL Thyroid Stimulating Hormone (TSH) 2.41 0.55-4.78 uIU/mL Troponin I High Sensitivity 129 *H </=34 ng/L Urine Color Light-yellow Yellow Urine Clarity Clear Clear Urine pH 5.5 5.0-9.0 Urine Specific [place] 1.011 1.001-1.035 Urine Protein Trace H Negative Urine Ketones Negative Negative Urine Blood Negative Negative /uL Urine Nitrite Negative Negative Urine Bilirubin Negative Negative Urine Urobilinogen Normal Negative mg/dL Urine Leukocyte Esterase Negative Negative /uL Urine RBC 2 0 - 4 /hpf Urine Microscopic WBC 1 0-5 /HPF Urine Squamous Epithelial Cells Few <5 /hpf Urine Bacteria None seen None Seen /hpf Urine Mucus Few None Seen Urine Glucose Normal Normal mg/dL Urine Opiates Screen Neg NEGATIVE Urine Fentanyl Screen Neg NEGATIVE Urine Barbiturates Screen Neg NEGATIVE Urine Phencyclidine Screen Neg NEGATIVE Urine Amphetamines Screen Neg NEGATIVE Urine Benzodiazepines Screen Neg NEGATIVE Urine Cocaine Screen Neg NEGATIVE Urine Cannabinoids Screen Neg NEGATIVE Test 07/30/25 23:10 Range/Units B-Type Natriuretic Peptide 1868.46 0-100 pg/mL Assessment Acute hypoxic respiratory failure. Acute on chronic heart failure likely due to HFrEF. Bilateral leg edema likely. NSTEMI type 2 likely due to demand lead ischemia. Hypertension. Transaminitis. Depression. Anxiety. Plan/Recommendation I agree with your ongoing assessment and care of plan. Echocardiogram. Morphine and [place] for pain management. Aspirin. Coreg. DVT prophylactics. Diuretics with Lasix. Entresto. Additional plan as per the hospital course. A total of 45 minutes was spent reviewing the patient record, examining the patient, making a diagnostic and therapeutic plan, discussing this plan with medical personnel, following up on diagnostic studies and following the patient for clinical stability excluding any and all procedures. At least 50% of this time was spent in direct, [id number] contact. Plan discussed with: Patient OLGA MEDRANO MD Jul 31, 2025 23:21
[2025-08-01] VITALS (9 sets, daily range): BP systolic 87–112; BP diastolic 51–73; PULSE 77–114; RESP 16–18; TEMP 97.5–99; O2SAT 95–100
[2025-08-01] MEDS: ALBUMIN 5% 250 ML IV ONE (01:10)
[2025-08-01 05:57] LABS: Hematocrit 41.1 % (36.0-46.0); Hemoglobin 13.8 g/dL (12.2-16.2); Mean Corpuscular Hemoglobin 29.6 pg (28.0-32.0); Mean Corpuscular Volume 88.4 fL (80.0-100.0); Nucleated Red Blood Cells % 0.0 %
[2025-08-01 06:21] LABS: Alanine Aminotransferase 31 U/L (7-40); Alkaline Phosphatase 57 U/L (46-116); Anion Gap 11 (5-15); BUN/Creatinine Ratio 19.1 (10.0-20.0); Blood Urea Nitrogen 18 mg/dL (9-23); Carbon Dioxide 29 mmol/L (20-31); Chloride 103 mmol/L (98-107); Glucose 97 mg/dL (74-106); Potassium 3.9 mmol/L (3.5-5.1); Sodium 143 mmol/L (136-145)
[2025-08-01 06:22] LABS: Magnesium 2.0 mg/dL (1.6-2.6); Total Protein 5.8 g/dL (5.7-8.2)
[2025-08-01 06:23] LABS: Albumin 3.8 g/dL (3.2-4.8)
[2025-08-01 06:28] LABS: Bilirubin, Total 2.8 mg/dL (0.2-1.0); Calcium 8.6 mg/dL (8.7-10.4)
[2025-08-01] MEDS: SPIRONOLACTONE 25 MG TAB PO SCH (10:00)
[2025-08-01] MEDS: EMPAGLIFLOZIN 10 MG TAB PO SCH (10:00)
[2025-08-01 13:02] LABS: Hepatitis B Surface Antigen Negative (Negative)
[2025-08-01 13:20] LABS: Hepatitis C Antibody Negative (Negative)
--- NOTE | 2025-08-01 17:12 | DVHPNRES ---
Progress Note Date Seen: Aug 01, 2025 Resident Creating Document: ALEKS BINGHAM RESIDENT Medical Necessity Reason Pt with a Central, PICC or Fol: No Subjective Review of Systems HPI: Patient is 55 years old female with a past medical history of HFrEF 25-30%, hypertension, depression, anxiety came with a complaint of shortness of breaths Functional Class III. As per patient she has been having worsening shortness of breaths for last 1 week associated with PND and orthopnea. Patient also reported palpitation and and nonproductive cough. On further inquiry patient reported bilateral leg swelling for last more than 1 week. Patient denied any fever, chest pain, acute diarrhea, acute joint redness, dysarthria or change in vision. Patient had echo done in March, which revealed EF 25-30%, global hypokinesia. Severe LV and LA and mild RV dilation. Mild eccentric septal hypertrophy.Grade 2 diastolic dysfunction. RVSP 36. Initial lab workup revealed troponin I > 128> 123> 129, BNP 1868, serum bilirubin 2.8, ALT 44, hemoglobin A1c 5.7, TSH 2.41. UDS negative, urinalysis negative. CXR- Moderate cardiomegaly with mild pulmonary vascular congestion. PMH-HFrEF 25-30%, hypertension, depression, anxiety PSH- no surgery per patient Allergy- and kidney Personal History/ Social History- denies smoking/alcoholism/drug abuse, lives with the Patient was seen and examined at bedside today. She reports feeling shortness of breaths. Her nasal cannula oxygen was increased to 4 L due to orthopnea and paroxysmal nocturnal dyspnea. The nasal cannula oxygen was tapered to 2 L later during the day. Objective vital signs Vital Sign Date Time Temp Pulse Resp B/P (MAP) Pulse Ox O2 Delivery O2 Flow Rate FiO2 08/01/25 13:00 98.2 114 18 112/70 (84) 97 98.2 08/01/25 08:00 Room Air* 0 21 Total Intake and Output 07/31/25 07/31/25 08/01/25 15:00 23:00 07:00 Intake Total 240 ml Balance 240 ml medications Current Medications Medications Dose Ordered Sig/Suzy Route Start Time Stop Time Status Last Admin Dose Admin Carvedilol 3.125 mg Q12HR PO 07/31/25 10:00 08/01/25 10:00 3.125 MG Aspirin 81 mg DAILY PO 07/31/25 10:00 08/01/25 10:00 81 MG Sodium Chloride 10 ml Q8HR IV 07/31/25 06:00 08/01/25 11:11 10 ML Acetaminophen/ Hydrocodone Bitart 1 tab Q4HP PRN PO 07/31/25 01:00 Ondansetron HCl 4 mg Q4HP PRN IV 07/31/25 01:00 Docusate Sodium 100 mg BIDPRN PRN PO 07/31/25 01:00 Acetaminophen 650 mg Q6HP PRN PO 07/31/25 01:00 Nitroglycerin 0.4 mg Q5MINP PRN SL 07/31/25 01:00 Morphine Sulfate 2 mg Q30M PRN IV 07/31/25 01:00 Spironolactone 25 mg DAILY PO 08/01/25 10:00 08/01/25 10:00 25 MG Sacubitril/ Valsartan 1 tab BID PO 07/31/25 22:00 08/01/25 10:00 1 TAB Empaglifozin 10 mg DAILY PO 08/01/25 10:00 08/01/25 10:00 10 MG Furosemide 40 mg BID IV 07/31/25 22:00 08/01/25 10:00 40 MG Enoxaparin Sodium 40 mg DAILY SC 07/31/25 16:30 Examination Pt is lying on bed General Appearance: Alert, Oriented X3, Cooperative, Mild distress HEENT: Atraumatic, Mucous membranes moist/pink Respiratory: Bilateral basilar crackles present, Normal air movement, No added sounds Cardiovascular: Regular rate, Normal S1, Normal S2, No murmurs Abdominal/ : Active bowel sounds, Soft, no distention, no tenderness Extremities: No edema, Normal pulses, No tenderness/swelling Skin: No Significant rash, except past surgical scars Neuro: Normal speech, sensorimotor deficits none Psych/Mental Status: Mental status NL, Mood NL Nurse was there as lead janitor during examination laboratory and microbiology Laboratory Tests 08/01/25 05:09 Test 08/01/25 05:09 Range/Units Serum Glucose 97 74-106 mg/dL Labs and/or images reviewed: Labs reviewed by me, Image(s) reviewed by me Problem List/Assessment/Plan Problem List/Assessment/Plan # acute hypoxic respiratory failure likely due to acute on chronic HFrEF # acute on chronic heart failure likely due to HFrEF # bilateral leg edema likely due to above -EKG no acute ST-T wave changes -trop I 128> 133> 129 -BNP 1868 -previous echo March,- EF 25-30%, global hypokinesia. Severe LV and LA and mild RV dilation. Mild eccentric septal hypertrophy.Grade 2 diastolic dysfunction. RVSP 36. -Echo 2D dilated cardiomyopathy, LVEF 20%, major LV systolic dysfunction, severe MR, moderate TR, severe pulmonary hypertension, RVSP 48. -pending cardiology consult -on Jardiance/spironolactone/Entresto/carvedilol -continue Lasix 40 IV b.i.d. -strict I&O -fluid restriction 1200 mL/24 hour -cardiology consultation appreciated, patient is scheduled for left heart catheterization on 08/03/[address] Cain. # NSTEMI type 2 likely due to demand lead ischemia -continue current conservative manage # hypertension -continue Entresto and carvedilol, spironolactone -monitor BP # transaminitis -monitor -ordered liver ultrasound for further evaluation # depression # anxiety -continue monitoring clinically Goals of care, Code status full code; discussed with >15 minutes PUD prophylaxis: Pantoprazole DVT prophylaxis: Lovenox Plan discussed with Dr. Wilson, nursing staff, Total time spent on patient evaluation, chart review, assessment and plan, discussion discussion >35 minutes Plan discussed with: Patient, Other (RN) Plan discussed with: Patient, Other (RN) Visit Coding STANDARD RES Billing Provider: KATHERINE WILSON MD Date of Service if different f: Aug 01, 2025 Common Visit Codes: [id number] INP/OBS CARE (HIGH), [id number] INP/OBS CARE(HIGH) Secondary Visit Codes: [id number] CARE PLAN 30 MINUTES ALEKS BINGHAM Aug 01, 2025 17:12 KATHERINE WILSON MD Aug 02, 2025 18:52
[2025-08-02] VITALS (8 sets, daily range): BP systolic 82–108; BP diastolic 60–77; PULSE 83–94; RESP 16–19; TEMP 97–99; O2SAT 94–100
--- NOTE | 2025-08-02 00:43 | DVHPN2 ---
Progress Note - Dictate Date Seen: Aug 01, 2025 Medical Necessity Reason Pt with a Central, PICC or Fol: No Subjective Patient was seen and evaluated in follow up. Patient is c/o SOB. Patient was on 4 LPM NC earlier today and was tapered down this evening. CBC and chemistry panel are unremarkable. Echocardiogram is pending. Telemetry reviewed. vital signs Vital Sign Date Time Temp Pulse Resp B/P (MAP) Pulse Ox O2 Delivery O2 Flow Rate FiO2 08/01/25 21:58 114/86 08/01/25 21:58 94 08/01/25 20:52 98.3 18 100 98.3 08/01/25 08:00 Room Air* 0 21 Total Intake and Output 08/01/25 08/01/25 08/02/25 15:00 23:00 07:00 Intake Total 750 ml 800 ml Balance 750 ml 800 ml medications Current Medications Medications Dose Ordered Sig/Suzy Route Start Time Stop Time Status Last Admin Dose Admin Carvedilol 3.125 mg Q12HR PO 07/31/25 10:00 08/01/25 10:00 3.125 MG Aspirin 81 mg DAILY PO 07/31/25 10:00 08/01/25 10:00 81 MG Sodium Chloride 10 ml Q8HR IV 07/31/25 06:00 08/01/25 21:58 10 ML Acetaminophen/ Hydrocodone Bitart 1 tab Q4HP PRN PO 07/31/25 01:00 Ondansetron HCl 4 mg Q4HP PRN IV 07/31/25 01:00 Docusate Sodium 100 mg BIDPRN PRN PO 07/31/25 01:00 Acetaminophen 650 mg Q6HP PRN PO 07/31/25 01:00 Nitroglycerin 0.4 mg Q5MINP PRN SL 07/31/25 01:00 Morphine Sulfate 2 mg Q30M PRN IV 07/31/25 01:00 Spironolactone 25 mg DAILY PO 08/01/25 10:00 08/01/25 10:00 25 MG Sacubitril/ Valsartan 1 tab BID PO 07/31/25 22:00 08/01/25 10:00 1 TAB Empaglifozin 10 mg DAILY PO 08/01/25 10:00 08/01/25 10:00 10 MG Furosemide 40 mg BID IV 07/31/25 22:00 08/01/25 21:58 40 MG Enoxaparin Sodium 40 mg DAILY SC 07/31/25 16:30 objective GENERAL: Alert and oriented x 3. No acute distress. EYES: PERRL, EOMI. Anicteric. HENT: Moist mucous membranes. LUNGS: Clear to auscultation bilaterally. CARDIOVASCULAR: Regular rate and rhythm. ABDOMEN: Soft, nontender and nondistended. EXTREMITIES: No edema. NEUROLOGIC: No focal neurological deficits. SKIN: Warm, dry. laboratory and microbiology Laboratory Tests 08/01/25 05:09 Test 08/01/25 05:09 Range/Units Serum Glucose 97 74-106 mg/dL Problem List Acute hypoxic respiratory failure. Acute on chronic heart failure likely due to HFrEF. Bilateral leg edema likely. NSTEMI type 2 likely due to demand lead ischemia. Hypertension. Transaminitis. Depression. Anxiety. Assessment/Plan Continued all current supportive medical care. Echocardiogram. Morphine and Tyronza for pain management. Aspirin. Coreg. DVT prophylactics. Diuretics with Lasix. Entresto. Additional plan as per the hospital course. Plan discussed with: Patient OLGA MEDRANO MD Aug 02, 2025 00:43
[2025-08-02 06:08] LABS: Hematocrit 43.1 % (36.0-46.0); Hemoglobin 14.3 g/dL (12.2-16.2); Mean Corpuscular Hemoglobin 29.6 pg (28.0-32.0); Mean Corpuscular Volume 89.0 fL (80.0-100.0); Nucleated Red Blood Cells % 0.0 %
[2025-08-02 06:44] LABS: Alanine Aminotransferase 32 U/L (7-40); Albumin 4.2 g/dL (3.2-4.8); Alkaline Phosphatase 58 U/L (46-116); Anion Gap 11 (5-15); BUN/Creatinine Ratio 14.3 (10.0-20.0); Blood Urea Nitrogen 14 mg/dL (9-23); Calcium 9.2 mg/dL (8.7-10.4); Glucose 88 mg/dL (74-106); Potassium 4.7 mmol/L (3.5-5.1); Sodium 140 mmol/L (136-145); Total Protein 6.5 g/dL (5.7-8.2)
[2025-08-02 06:46] LABS: Bilirubin, Total 3.1 mg/dL (0.2-1.0); Carbon Dioxide 32 mmol/L (20-31); Chloride 97 mmol/L (98-107)
--- NOTE | 2025-08-02 12:01 | DVH ---
INDICATION: cough TECHNIQUE: Frontal view of the chest. COMPARISON: XY CHEST XRAY 1 VIEW on DOS: 07/30/25 FINDINGS: . The heart size is enlarged. There are no definite infiltrates. There are no effusions. There is no congestive heart failure. IMPRESSION: 1. Cardiomegaly without acute cardiopulmonary disease.
--- NOTE | 2025-08-02 15:12 | DVHPNRES ---
Progress Note Date Seen: Aug 02, 2025 Resident Creating Document: ALEKS BINGHAM RESIDENT Medical Necessity Reason Pt with a Central, PICC or Fol: No Subjective Review of Systems HPI: Patient is 55 years old female with a past medical history of HFrEF 25-30%, hypertension, depression, anxiety came with a complaint of shortness of breaths Functional Class III. As per patient she has been having worsening shortness of breaths for last 1 week associated with PND and orthopnea. Patient also reported palpitation and and nonproductive cough. On further inquiry patient reported bilateral leg swelling for last more than 1 week. Patient denied any fever, chest pain, acute diarrhea, acute joint redness, dysarthria or change in vision. Patient had echo done in March, which revealed EF 25-30%, global hypokinesia. Severe LV and LA and mild RV dilation. Mild eccentric septal hypertrophy.Grade 2 diastolic dysfunction. RVSP 36. Initial lab workup revealed troponin I > 128> 123> 129, BNP 1868, serum bilirubin 2.8, ALT 44, hemoglobin A1c 5.7, TSH 2.41. UDS negative, urinalysis negative. CXR- Moderate cardiomegaly with mild pulmonary vascular congestion. PMH-HFrEF 25-30%, hypertension, depression, anxiety PSH- no surgery per patient Allergy- and kidney Personal History/ Social History- denies smoking/alcoholism/drug abuse, lives with the Patient was seen and examined at bedside today. The patient reports having increased productive cough. She feels congested. She was on room air. She reports her leg swelling improved since yesterday. Objective vital signs Vital Sign Date Time Temp Pulse Resp B/P (MAP) Pulse Ox O2 Delivery O2 Flow Rate FiO2 08/02/25 10:45 67 105/72 08/02/25 09:00 99.0 18 95 99.0 08/01/25 20:25 Room Air* 0 21 Total Intake and Output 08/01/25 08/01/25 08/02/25 15:00 23:00 07:00 Intake Total 750 ml 800 ml 360 ml Balance 750 ml 800 ml 360 ml medications Current Medications Medications Dose Ordered Sig/Suzy Route Start Time Stop Time Status Last Admin Dose Admin Carvedilol 3.125 mg Q12HR PO 07/31/25 10:00 08/02/25 09:45 3.125 MG Aspirin 81 mg DAILY PO 07/31/25 10:00 08/02/25 09:45 81 MG Sodium Chloride 10 ml Q8HR IV 07/31/25 06:00 08/02/25 09:46 10 ML Acetaminophen/ Hydrocodone Bitart 1 tab Q4HP PRN PO 07/31/25 01:00 Ondansetron HCl 4 mg Q4HP PRN IV 07/31/25 01:00 Docusate Sodium 100 mg BIDPRN PRN PO 07/31/25 01:00 Acetaminophen 650 mg Q6HP PRN PO 07/31/25 01:00 Nitroglycerin 0.4 mg Q5MINP PRN SL 07/31/25 01:00 Morphine Sulfate 2 mg Q30M PRN IV 07/31/25 01:00 Spironolactone 25 mg DAILY PO 08/01/25 10:00 08/02/25 09:45 25 MG Empaglifozin 10 mg DAILY PO 08/01/25 10:00 08/02/25 09:45 10 MG Furosemide 40 mg BID IV 07/31/25 22:00 08/02/25 09:45 40 MG Enoxaparin Sodium 40 mg DAILY SC 07/31/25 16:30 Guaifenesin/ Dextromethorphan 10 ml Q4HP PRN PO 08/02/25 11:15 Examination Pt is lying on bed General Appearance: Alert, Oriented X3, Cooperative, Mild distress HEENT: Atraumatic, Mucous membranes moist/pink Respiratory: Mild basilar crackles, Normal air movement, No added sounds Cardiovascular: Regular rate, Normal S1, Normal S2, No murmurs Abdominal/ : Active bowel sounds, Soft, no distention, no tenderness Extremities: 1+ edema, Normal pulses, No tenderness/swelling Skin: No Significant rash, except past surgical scars Neuro: Normal speech, sensorimotor deficits none Psych/Mental Status: Mental status NL, Mood NL Nurse was there as telecom manager during examination laboratory and microbiology Laboratory Tests 08/02/25 05:13 Test 08/02/25 05:13 Range/Units Serum Glucose 88 74-106 mg/dL Labs and/or images reviewed: Labs reviewed by me, Image(s) reviewed by me Problem List/Assessment/Plan Problem List/Assessment/Plan # acute hypoxic respiratory failure likely due to acute on chronic HFrEF # acute on chronic heart failure likely due to HFrEF # bilateral leg edema likely due to above -EKG no acute ST-T wave changes -trop I 128> 133> 129 -BNP 1867 -previous echo March,- EF 25-30%, global hypokinesia. Severe LV and LA and mild RV dilation. Mild eccentric septal hypertrophy.Grade 2 diastolic dysfunction. RVSP 36. -Echo 2D dilated cardiomyopathy, LVEF 20%, major LV systolic dysfunction, severe MR, moderate TR, severe pulmonary hypertension, RVSP 48. -pending cardiology consult -on Jardiance/spironolactone/Entresto/carvedilol -continue Lasix 40 IV b.i.d. -strict I&O -fluid restriction 1200 mL/24 hour -cardiology consultation appreciated, patient is scheduled for left heart catheterization on 08/03/[address] Cain. -patient had an episode of hypotension, with map 58. She was given IV 250 mL bolus. Her Entresto dose reduced to half. # NSTEMI type 2 likely due to demand lead ischemia -continue current conservative manage # hypertension -continue Entresto and carvedilol, spironolactone -monitor BP # transaminitis -monitor -ordered liver ultrasound for further evaluation # depression # anxiety -continue monitoring clinically Goals of care, Code status full code; discussed with >15 minutes PUD prophylaxis: Pantoprazole DVT prophylaxis: Lovenox Plan discussed with Dr. Wilson, nursing staff, Total time spent on patient evaluation, chart review, assessment and plan, discussion discussion >35 minutes Plan discussed with: Patient, Other (RN) Plan discussed with: Patient, Other (RN) My Orders My Orders Orders - ALEKS BINGHAM Procedure Category Date Status Time Npo After Midnight MARCELA 08/02/25 In Process 11:01 Npo (Nothing By DIET 08/03/25 Transmitted Mouth) Diet Breakfast Chest Portable XY 08/02/25 Resulted 11:01 Guaifenesin-Dextromet PHA 08/02/25 In Process Liquid (Robitussin 11:15 Sodium Chloride 0.9% PHA 08/02/25 Logged 15:15 Communication Order ORDERS 08/02/25 Transmitted 15:03 Visit Coding STANDARD RES Billing Provider: KATHERINE WILSON MD Date of Service if different f: Aug 02, 2025 Common Visit Codes: [id number] INP/OBS CARE(HIGH) ALEKS BINGHAM RESIDENT Aug 02, 2025 15:12 KATHERINE WILSON MD Aug 02, 2025 18:40
[2025-08-02] MEDS: SODIUM CHLORIDE 0.9% 250 ML IV ONE (16:00)
--- NOTE | 2025-08-02 23:18 | DVHPN2 ---
Progress Note - Dictate Date Seen: Aug 02, 2025 Medical Necessity Reason Pt with a Central, PICC or Fol: No Subjective Patient was seen and evaluated in follow up. Patient is now on room air. CO2 32. Chest x-ray shows cardiomegaly without acute cardiopulmonary disease. Echocardiogram showed an EF of 20%. Telemetry reviewed. vital signs Vital Sign Date Time Temp Pulse Resp B/P (MAP) Pulse Ox O2 Delivery O2 Flow Rate FiO2 08/02/25 09:45 105/72 08/02/25 09:45 73 08/02/25 09:00 99.0 18 95 99.0 08/01/25 20:25 Room Air* 0 21 Total Intake and Output 08/01/25 08/01/25 08/02/25 15:00 23:00 07:00 Intake Total 750 ml 800 ml 360 ml Balance 750 ml 800 ml 360 ml medications Current Medications Medications Dose Ordered Sig/Suzy Route Start Time Stop Time Status Last Admin Dose Admin Carvedilol 3.125 mg Q12HR PO 07/31/25 10:00 08/02/25 09:45 3.125 MG Aspirin 81 mg DAILY PO 07/31/25 10:00 08/02/25 09:45 81 MG Sodium Chloride 10 ml Q8HR IV 07/31/25 06:00 08/02/25 09:46 10 ML Acetaminophen/ Hydrocodone Bitart 1 tab Q4HP PRN PO 07/31/25 01:00 Ondansetron HCl 4 mg Q4HP PRN IV 07/31/25 01:00 Docusate Sodium 100 mg BIDPRN PRN PO 07/31/25 01:00 Acetaminophen 650 mg Q6HP PRN PO 07/31/25 01:00 Nitroglycerin 0.4 mg Q5MINP PRN SL 07/31/25 01:00 Morphine Sulfate 2 mg Q30M PRN IV 07/31/25 01:00 Spironolactone 25 mg DAILY PO 08/01/25 10:00 08/02/25 09:45 25 MG Sacubitril/ Valsartan 1 tab BID PO 07/31/25 22:00 08/02/25 09:45 1 TAB Empaglifozin 10 mg DAILY PO 08/01/25 10:00 08/02/25 09:45 10 MG Furosemide 40 mg BID IV 07/31/25 22:00 08/02/25 09:45 40 MG Enoxaparin Sodium 40 mg DAILY SC 07/31/25 16:30 Guaifenesin/ Dextromethorphan 10 ml Q4HP PRN PO 08/02/25 11:15 objective GENERAL: Alert and oriented x 3. No acute distress. EYES: PERRL, EOMI. Anicteric. HENT: Moist mucous membranes. LUNGS: Clear to auscultation bilaterally. CARDIOVASCULAR: Regular rate and rhythm. ABDOMEN: Soft, nontender and nondistended. EXTREMITIES: No edema. NEUROLOGIC: No focal neurological deficits. SKIN: Warm, dry. laboratory and microbiology Laboratory Tests 08/02/25 05:13 Test 08/02/25 05:13 Range/Units Serum Glucose 88 74-106 mg/dL Problem List Acute hypoxic respiratory failure. Acute on chronic heart failure likely due to HFrEF. Bilateral leg edema likely. NSTEMI type 2 likely due to demand lead ischemia. Hypertension. Transaminitis. Depression. Anxiety. Assessment/Plan Continued all current supportive medical care. Morphine and [place] for pain management. Aspirin. Coreg. DVT prophylactics. Diuretics with Lasix. Entresto. Additional plan as per the hospital course. Plan discussed with: Patient OLGA MEDRANO MD Aug 02, 2025 14:12
[2025-08-03] VITALS (21 sets, daily range): BP systolic 91–125; BP diastolic 62–83; PULSE 90–108; RESP 13–20; TEMP 97.2–100; O2SAT 93–100
[2025-08-03] MEDS: IODIXANOL 320MG/ML 100ML BTL IV ONE (07:53)
[2025-08-03] MEDS: fentaNYL CITRATE 100 MCG/2 ML VL ONE (08:39)
[2025-08-03] MEDS: HEPARIN SODIUM (PORCINE) 5000 UNITS/ML 1ML VIAL ONE (08:39)
[2025-08-03] MEDS: MIDAZOLAM HCL 2MG/2ML 2ml VIAL (1mg/ml) ONE (08:39)
[2025-08-03] MEDS: VERAPAMIL 2.5MG/ML INJ 2ML VIAL IV ONE (08:39)
[2025-08-03] MEDS: ANGIOMAX 250 MG VIAL IV ONE (08:39)
[2025-08-03] MEDS: LIDOCAINE 2%HCL (LOCAL ANESTH.) INJ 20ML MDV ONE (08:40)
[2025-08-03] MEDS: SODIUM CHL 0.9% 0 ML ONE (08:40)
[2025-08-03] MEDS: NITROGLYCERIN 50MG/250ML 250 ML IV ONE (08:44)
--- NOTE | 2025-08-03 10:54 | DVHOP ---
DATE OF SURGERY: 08/03/2025 TECHNIQUE PERFORMED: * Ultrasound of right radial artery. * Management of conscious sedation. * Ultrasound-guided insertion of 6[place] arterial line from the right radial artery. * Left heart catheterization. * Left ventriculogram. * [place] selective left and right coronary angiography. * Ultrasound of the right femoral venous system. * Insertion of 6[place] venous line in the right femoral vein. * Right heart catheterization. ASSISTANTS: Assisted by Noah Thomas and Poly. COMPLICATIONS: None. INDICATIONS: Dilated cardiomyopathy, ejection fraction in range of less than 20%. DESCRIPTION OF PROCEDURE: The procedure risks, benefits discussed. Counseling done, questions answered. The patient was brought to our roving tester laboratory. The patient's right radial area was thoroughly cleaned with soap and Betadine and lidocaine was given. A 6[place] arterial line was placed and subsequently, we put a TIG catheter, 5-[place] 4.0, and the left coronary angiogram done. Subsequently, with the help of a JR4 catheter, a right coronary angiogram done. With the help of the pigtail catheter, complete left heart cath had been done. The left ventriculogram was done in the right anterior oblique view with a total of 20 mL of dye. Post LV gram, left ventricular angiography had been performed with the help of pull-through technique. Aortic pressure also performed. After that, we have done the right femoral Doppler study. Vein was punctured under ultrasound. A 6-[place] venous line was placed in the right femoral. Subsequently, [place]-No catheter was passed under fluoroscopy and we have done the right heart catheterization. Pulmonary artery wedge, right ventricular pressure, right atrial pressure, all been obtained. Procedure completed. IMPRESSION: * Normal left main. * Normal left anterior descending artery. * Normal, large circumflex obtuse marginal artery. * Large dominant right coronary artery. * The ejection fraction of the left ventricle is 15%. Global hypokinesis of the left ventricle. * The severe pulmonary hypertension, right ventricular and pulmonary artery systolic pressure is in the range of 70. CONCLUSION: End-stage dilated cardiomyopathy, severe pulmonary hypertension. PLAN OF ACTION: Follow this patient. Ultimately, we will need implantable cardioverter with defibrillator. MD ZITA Willis TID: [id number] RECEIPT: [id number]
[2025-08-03 12:53] LABS: Hematocrit 44.6 % (36.0-46.0); Hemoglobin 14.9 g/dL (12.2-16.2); Mean Corpuscular Hemoglobin 29.7 pg (28.0-32.0); Mean Corpuscular Volume 89.2 fL (80.0-100.0); Nucleated Red Blood Cells % 0.1 %
[2025-08-03 13:11] LABS: Albumin 4.3 g/dL (3.2-4.8); Alkaline Phosphatase 64 U/L (46-116); Anion Gap 10 (5-15); BUN/Creatinine Ratio 16.1 (10.0-20.0); Blood Urea Nitrogen 14 mg/dL (9-23); Calcium 9.4 mg/dL (8.7-10.4); Carbon Dioxide 31 mmol/L (20-31); Chloride 98 mmol/L (98-107); Glucose 103 mg/dL (74-106); Potassium 4.1 mmol/L (3.5-5.1); Sodium 139 mmol/L (136-145); Total Protein 6.9 g/dL (5.7-8.2)
[2025-08-03 13:14] LABS: Alanine Aminotransferase 47 U/L (7-40); Bilirubin, Total 2.4 mg/dL (0.2-1.0)
--- NOTE | 2025-08-03 15:34 | DVHPNRES ---
Progress Note Date Seen: Aug 03, 2025 Resident Creating Document: ALEKS BINGHAM RESIDENT Medical Necessity Reason Pt with a Central, PICC or Fol: No Subjective Review of Systems HPI: Patient is 55 years old female with a past medical history of HFrEF 25-30%, hypertension, depression, anxiety came with a complaint of shortness of breaths Functional Class III. As per patient she has been having worsening shortness of breaths for last 1 week associated with PND and orthopnea. Patient also reported palpitation and and nonproductive cough. On further inquiry patient reported bilateral leg swelling for last more than 1 week. Patient denied any fever, chest pain, acute diarrhea, acute joint redness, dysarthria or change in vision. Patient had echo done in March, which revealed EF 25-30%, global hypokinesia. Severe LV and LA and mild RV dilation. Mild eccentric septal hypertrophy.Grade 2 diastolic dysfunction. RVSP 36. Initial lab workup revealed troponin I > 128> 123> 129, BNP 1868, serum bilirubin 2.8, ALT 44, hemoglobin A1c 5.7, TSH 2.41. UDS negative, urinalysis negative. CXR- Moderate cardiomegaly with mild pulmonary vascular congestion. PMH-HFrEF 25-30%, hypertension, depression, anxiety PSH- no surgery per patient Allergy- and kidney Personal History/ Social History- denies smoking/alcoholism/drug abuse, lives with the 08/03/2025: Patient was seen and examined at bedside today swollen left heart catheterization. The patient was sleeping under deep sedation. The procedure was performed successfully. Her vitals are stable. We will continue monitoring. Objective vital signs Vital Sign Date Time Temp Pulse Resp B/P (MAP) Pulse Ox O2 Delivery O2 Flow Rate FiO2 08/03/25 13:00 99.0 98 20 104/74 (84) 97 99.0 08/03/25 08:00 Nasal Cannula* 2 28 Total Intake and Output 08/02/25 08/02/25 08/03/25 15:00 23:00 07:00 Intake Total 480 ml 420 ml Balance 480 ml 420 ml medications Current Medications Medications Dose Ordered Sig/Suzy Route Start Time Stop Time Status Last Admin Dose Admin Carvedilol 3.125 mg Q12HR PO 07/31/25 10:00 08/02/25 09:45 3.125 MG Aspirin 81 mg DAILY PO 07/31/25 10:00 08/02/25 09:45 81 MG Sodium Chloride 10 ml Q8HR IV 07/31/25 06:00 08/03/25 06:27 10 ML Acetaminophen/ Hydrocodone Bitart 1 tab Q4HP PRN PO 07/31/25 01:00 Ondansetron HCl 4 mg Q4HP PRN IV 07/31/25 01:00 Docusate Sodium 100 mg BIDPRN PRN PO 07/31/25 01:00 Acetaminophen 650 mg Q6HP PRN PO 07/31/25 01:00 Nitroglycerin 0.4 mg Q5MINP PRN SL 07/31/25 01:00 Morphine Sulfate 2 mg Q30M PRN IV 07/31/25 01:00 Spironolactone 25 mg DAILY PO 08/01/25 10:00 08/02/25 09:45 25 MG Empaglifozin 10 mg DAILY PO 08/01/25 10:00 08/02/25 09:45 10 MG Furosemide 40 mg BID IV 07/31/25 22:00 08/02/25 21:37 40 MG Enoxaparin Sodium 40 mg DAILY SC 07/31/25 16:30 Guaifenesin/ Dextromethorphan 10 ml Q4HP PRN PO 08/02/25 11:15 Examination Examination Pt is lying on bed General Appearance: Alert, Oriented X3, Cooperative, Mild distress HEENT: Atraumatic, Mucous membranes moist/pink Respiratory: Mild basilar crackles, Normal air movement, No added sounds Cardiovascular: Regular rate, Normal S1, Normal S2, No murmurs Abdominal/ : Active bowel sounds, Soft, no distention, no tenderness Extremities: 1+ edema, Normal pulses, No tenderness/swelling Skin: No Significant rash, except past surgical scars Neuro: Normal speech, sensorimotor deficits none Psych/Mental Status: Mental status NL, Mood NL Nurse was there as telecommunications cable jointer during examination laboratory and microbiology Laboratory Tests 08/03/25 12:42 Test 08/03/25 12:42 Range/Units Serum Glucose 103 74-106 mg/dL Labs and/or images reviewed: Labs reviewed by me, Image(s) reviewed by me Problem List/Assessment/Plan Problem List/Assessment/Plan # acute hypoxic respiratory failure likely due to acute on chronic HFrEF # acute on chronic heart failure likely due to HFrEF, ejection fraction 15% # bilateral leg edema likely due to above -EKG no acute ST-T wave changes -trop I 128> 133> 129 -BNP 1868 -previous echo March,- EF 25-30%, global hypokinesia. Severe LV and LA and mild RV dilation. Mild eccentric septal hypertrophy.Grade 2 diastolic dysfunction. RVSP 36. -Echo 2D dilated cardiomyopathy, LVEF 20%, major LV systolic dysfunction, severe MR, moderate TR, severe pulmonary hypertension, RVSP 48. -pending cardiology consult -on Jardiance/spironolactone/Entresto/carvedilol -continue Lasix 40 IV b.i.d. -strict I&O -fluid restriction 1200 mL/24 hour Left heart catheterization performed on 08/03/2025: Right and left catheterization, right and left coronary artery angiography: LVEF 15%. Global hypokinesis of LV. Severe pulmonary hypertension, right ventricular and pulmonary artery systolic pressure in the range of 70. Normal left main, LAD, LCX marginal artery neck, large dominant RCA. # NSTEMI type 2 likely due to demand lead ischemia -continue current conservative manage # hypertension -continue Entresto and carvedilol, spironolactone -monitor BP # transaminitis -monitor -ordered liver ultrasound for further evaluation # depression # anxiety -continue monitoring clinically Goals of care, Code status full code; discussed with >15 minutes PUD prophylaxis: Pantoprazole DVT prophylaxis: Lovenox Plan discussed with Dr. Wilson, nursing staff, Total time spent on patient evaluation, chart review, assessment and plan, discussion discussion >35 minutes Plan discussed with: Patient, Other (RN) Plan discussed with: Patient, Other (RN) My Orders My Orders Orders - ALEKS BINGHAM Procedure Category Date Status Time Cl Left Heart Cath CL 08/03/25 Taken 08:21 Visit Coding STANDARD RES Billing Provider: KATHERINE WILSON MD Date of Service if different f: Aug 03, 2025 Common Visit Codes: 81137-[id number] INP/OBS CARE(HIGH) ALEKS BINGHAM RESIDENT Aug 03, 2025 15:34
[2025-08-03] MEDS: guaiFENesin-DM 100/10mg/5ml SYR PO PRN (17:09)
[2025-08-04] VITALS (7 sets, daily range): BP systolic 92–105; BP diastolic 64–77; PULSE 73–106; RESP 16–18; TEMP 97.6–98.4; O2SAT 94–97
--- NOTE | 2025-08-04 04:32 | DVHPN2 ---
Progress Note - Dictate Date Seen: Aug 03, 2025 Medical Necessity Reason Pt with a Central, PICC or Fol: No Subjective Patient was seen and evaluated in follow up. Patient underwent left heart catheterization, [place] selective left and right coronary angiography, right heart catheterization. The ejection fraction of the left ventricle is 15%. Global hypokinesis of the left ventricle.The severe pulmonary hypertension, right ventricular and pulmonary artery systolic pressure is in the range of 70. End-stage dilated cardiomyopathy, severe pulmonary hypertension. Ultimately, we will need implantable cardioverter with defibrillator. Telemetry reviewed. vital signs Vital Sign Date Time Temp Pulse Resp B/P (MAP) Pulse Ox O2 Delivery O2 Flow Rate FiO2 08/03/25 12:15 98.1 98 19 98/64 (75) 97 98.1 08/02/25 20:00 Room Air* 0 21 Total Intake and Output 08/02/25 08/02/25 08/03/25 15:00 23:00 07:00 Intake Total 480 ml 420 ml Balance 480 ml 420 ml medications Current Medications Medications Dose Ordered Sig/Suzy Route Start Time Stop Time Status Last Admin Dose Admin Carvedilol 3.125 mg Q12HR PO 07/31/25 10:00 08/02/25 09:45 3.125 MG Aspirin 81 mg DAILY PO 07/31/25 10:00 08/02/25 09:45 81 MG Sodium Chloride 10 ml Q8HR IV 07/31/25 06:00 08/03/25 06:27 10 ML Acetaminophen/ Hydrocodone Bitart 1 tab Q4HP PRN PO 07/31/25 01:00 Ondansetron HCl 4 mg Q4HP PRN IV 07/31/25 01:00 Docusate Sodium 100 mg BIDPRN PRN PO 07/31/25 01:00 Acetaminophen 650 mg Q6HP PRN PO 07/31/25 01:00 Nitroglycerin 0.4 mg Q5MINP PRN SL 07/31/25 01:00 Morphine Sulfate 2 mg Q30M PRN IV 07/31/25 01:00 Spironolactone 25 mg DAILY PO 08/01/25 10:00 08/02/25 09:45 25 MG Empaglifozin 10 mg DAILY PO 08/01/25 10:00 08/02/25 09:45 10 MG Furosemide 40 mg BID IV 07/31/25 22:00 08/02/25 21:37 40 MG Enoxaparin Sodium 40 mg DAILY SC 07/31/25 16:30 Guaifenesin/ Dextromethorphan 10 ml Q4HP PRN PO 08/02/25 11:15 objective GENERAL: Alert and oriented x 3. No acute distress. EYES: PERRL, EOMI. Anicteric. HENT: Moist mucous membranes. LUNGS: Clear to auscultation bilaterally. CARDIOVASCULAR: Regular rate and rhythm. ABDOMEN: Soft, nontender and nondistended. EXTREMITIES: No edema. NEUROLOGIC: No focal neurological deficits. SKIN: Warm, dry. laboratory and microbiology Laboratory Tests 08/03/25 12:42 Test 08/03/25 12:42 Range/Units Serum Glucose 103 74-106 mg/dL Problem List Acute hypoxic respiratory failure. Acute on chronic heart failure likely due to HFrEF. Bilateral leg edema likely. NSTEMI type 2 likely due to demand lead ischemia. Hypertension. Transaminitis. Depression. Anxiety. End-stage dilated cardiomyopathy. Pulmonary hypertension. Assessment/Plan Continued all current supportive medical care. Morphine and [place] for pain management. Aspirin. Coreg. DVT prophylactics. Diuretics with Lasix. Additional plan as per the hospital course. Plan discussed with: Patient OLGA MEDRANO MD Aug 03, 2025 13:28
[2025-08-04 07:10] LABS: Hematocrit 44.4 % (36.0-46.0); Hemoglobin 14.8 g/dL (12.2-16.2); Mean Corpuscular Hemoglobin 29.8 pg (28.0-32.0); Mean Corpuscular Volume 89.1 fL (80.0-100.0); Nucleated Red Blood Cells % 0.1 %
[2025-08-04 07:23] LABS: Albumin 4.4 g/dL (3.2-4.8); Alkaline Phosphatase 66 U/L (46-116); Anion Gap 14 (5-15); BUN/Creatinine Ratio 14.5 (10.0-20.0); Blood Urea Nitrogen 11 mg/dL (9-23); Calcium 9.4 mg/dL (8.7-10.4); Carbon Dioxide 27 mmol/L (20-31); Chloride 98 mmol/L (98-107); Glucose 102 mg/dL (74-106); Potassium 3.9 mmol/L (3.5-5.1); Sodium 139 mmol/L (136-145); Total Protein 7.0 g/dL (5.7-8.2)
[2025-08-04 07:27] LABS: Alanine Aminotransferase 57 U/L (7-40); Bilirubin, Total 2.2 mg/dL (0.2-1.0)
[2025-08-04] MEDS ORDERED: CHOL20007 PO (12:26)
[2025-08-04] MEDS ORDERED: EMPA1TAB PO (12:26)
[2025-08-04] MEDS ORDERED: CARV3.1240 PO (12:26)
[2025-08-04] MEDS ORDERED: FURO20TA3 PO (12:26)
[2025-08-04] MEDS ORDERED: SPIR25TA PO (12:26)
[2025-08-04] MEDS ORDERED: ATOR20TA50 PO (12:26)
[2025-08-04 13:56] LABS: Base Excess -0.3 mmol/L (-2.0-3.0)
--- NOTE | 2025-08-04 15:57 | DVHDSRES ---
Discharge Summary Date of Admission Resident Creating Document: ALEKS BINGHAM Jul 31, 2025 at 00:54 Date of Discharge: Aug 04, 2025 Admitting Diagnosis Acute hypoxic respiratory failure Labs/Diagnostic Data: Laboratory Results Test 08/04/25 13:50 08/04/25 06:25 08/01/25 05:09 07/31/25 18:00 Blood Gas Specimen Type Arterial Blood Gas Sample Site Left radial Blood Gas Patient Temperature 37.0 Arterial Blood Date Drawn [id number] Arterial Blood pH 7.485 (7.350-7.450) Arterial Blood Partial Pressure CO2 29.8 mmHg (32.0-45.0) Arterial Blood Partial Pressure O2 79.2 mmHg (83.0-108.0) Arterial Blood HCO3 21.9 mmol/L (21.0-28.0) Arterial Blood Oxygen Saturation 96.2 % (94.0-98.0) Arterial Blood Base Excess -0.3 mmol/L (-2.0-3.0) Arterial Blood Oxyhemoglobin 94.9 % (94.0-98.0) Arterial Blood Carboxyhemoglobin 1.1 % (0.5-1.5) Arterial Blood Methemoglobin 0.3 % (0.0-1.5) Arterial Blood Deoxyhemoglobin 3.7 % (0.0-5.0) Wesley Test Yes Blood Gas Total Hemoglobin 15.40 g/dL (12.0-16.0) Blood Gas Modality Room air FiO2 % 21.0 White Blood Count 6.2 10^3/uL (4.4-10.8) Red Blood Count 4.99 10^6/uL (4.0-5.20) Hemoglobin 14.8 g/dL (12.2-16.2) Hematocrit 44.4 % (36.0-46.0) Mean Corpuscular Volume 89.1 fL (80.0-100.0) Mean Corpuscular Hemoglobin 29.8 pg (28.0-32.0) Mean Corpuscular Hemoglobin Concent 33.4 g/dL (32.0-36.0) Red Cell Distribution Width 14.1 % (11.8-14.3) Platelet Count 134 10^3/uL (140-450) Mean Platelet Volume 9.8 fL (6.9-10.8) Neutrophils (%) (Auto) 69.7 % (37.0-80.0) Lymphocytes (%) (Auto) 16.1 % (10.0-50.0) Monocytes (%) (Auto) 12.7 % (0.0-12.0) Eosinophils (%) (Auto) 1.4 % (0.0-7.0) Basophils (%) (Auto) 0.1 % (0.0-2.0) Neutrophils # (Auto) 4.3 10 ^3/uL (1.6-8.6) Lymphocytes # (Auto) 1.0 10 ^3/uL (0.4-5.4) Monocytes # (Auto) 0.8 10 ^3/uL (0-1.3) Eosinophils # (Auto) 0.1 10 ^3/uL (0-0.8) Basophils # (Auto) 0 10 ^3/uL (0-0.2) Nucleated Red Blood Cells 0.1 % Sodium Level 139 mmol/L (136-145) Potassium Level 3.9 mmol/L (3.5-5.1) Chloride Level 98 mmol/L (98-107) Carbon Dioxide Level 27 mmol/L (20-31) Anion Gap 14 (5-15) Blood Urea Nitrogen 11 mg/dL (9-23) Creatinine 0.76 mg/dL (0.550-1.02) Glomerular Filtration Rate Calc 92 mL/min (>90) BUN/Creatinine Ratio 14.5 (10.0-20.0) Serum Glucose 102 mg/dL (74-106) Calcium Level 9.4 mg/dL (8.7-10.4) Total Bilirubin 2.2 mg/dL (0.2-1.0) Aspartate Amino Transferase (AST) 56 U/L (13-40) Alanine Aminotransferase (ALT) 57 U/L (7-40) Alkaline Phosphatase 66 U/L (46-116) Total Protein 7.0 g/dL (5.7-8.2) Albumin 4.4 g/dL (3.2-4.8) Magnesium Level 2.0 mg/dL (1.6-2.6) Hepatitis A IgM Antibody Negative Hepatitis B Surface Antigen Negative (Negative) Hepatitis B Core IgM Antibody Negative (Negative) Hepatitis C Antibody Negative (Negative) Test 07/31/25 04:45 07/31/25 02:16 07/31/25 01:41 07/30/25 23:10 Hemoglobin A1c 5.7 % A1C (<5.7) Lactate Dehydrogenase 290 U/L (120-246) Vitamin B12 Level 314 pg/mL (211-911) Vitamin D 25-Hydroxy 61.0 ng/mL (30.0-100) Folic Acid 16.57 ng/mL (>5.38) Thyroid Stimulating Hormone (TSH) 2.41 uIU/mL (0.55-4.78) Troponin I High Sensitivity 129 ng/L (</=34) Urine Color Light-yellow (Yellow) Urine Clarity Clear (Clear) Urine pH 5.5 (5.0-9.0) Urine Specific [place] 1.011 (1.001-1.035) Urine Protein Trace (Negative) Urine Ketones Negative (Negative) Urine Blood Negative /uL (Negative) Urine Nitrite Negative (Negative) Urine Bilirubin Negative (Negative) Urine Urobilinogen Normal mg/dL (Negative) Urine Leukocyte Esterase Negative /uL (Negative) Urine RBC 2 /hpf (0 - 4) Urine Microscopic WBC 1 /HPF (0-5) Urine Squamous Epithelial Cells Few /hpf (<5) Urine Bacteria None seen /hpf (None Seen) Urine Mucus Few (None Seen) Urine Glucose Normal mg/dL (Normal) Urine Opiates Screen Neg (NEGATIVE) Urine Fentanyl Screen Neg (NEGATIVE) Urine Barbiturates Screen Neg (NEGATIVE) Urine Phencyclidine Screen Neg (NEGATIVE) Urine Amphetamines Screen Neg (NEGATIVE) Urine Benzodiazepines Screen Neg (NEGATIVE) Urine Cocaine Screen Neg (NEGATIVE) Urine Cannabinoids Screen Neg (NEGATIVE) B-Type Natriuretic Peptide 1868.46 pg/mL (0-100) Other Laboratory Tests 08/04/25 06:25 Brief Hx & Hospital Course: HPI: Patient is 55 years old female with a past medical history of HFrEF 25-30%, hypertension, depression, anxiety came with a complaint of shortness of breaths Functional Class III. As per patient she has been having worsening shortness of breaths for last 1 week associated with PND and orthopnea. Patient also reported palpitation and and nonproductive cough. On further inquiry patient reported bilateral leg swelling for last more than 1 week. Patient denied any fever, chest pain, acute diarrhea, acute joint redness, dysarthria or change in vision. Patient had echo done in March, which revealed EF 25-30%, global hypokinesia. Severe LV and LA and mild RV dilation. Mild eccentric septal hypertrophy.Grade 2 diastolic dysfunction. RVSP 36. Initial lab workup revealed troponin I > 128> 123> 129, BNP 1868, serum bilirubin 2.8, ALT 44, hemoglobin A1c 5.7, TSH 2.41. UDS negative, urinalysis negative. CXR- Moderate cardiomegaly with mild pulmonary vascular congestion. PMH-HFrEF 25-30%, hypertension, depression, anxiety PSH- no surgery per patient Allergy- and kidney Personal History/ Social History- denies smoking/alcoholism/drug abuse, lives with the Brief hospital course: Further evaluation patient was diagnosed with acute hypoxic respiratory failure likely due to acute on chronic heart failure with reduced ejection fraction, EKG revealed no acute ischemic changes, troponin was not significantly elevated. BNP was elevated to 1868. According to her previous echo on 2018 patient is EF were 25-30%, global hypokinesia, grade 2 diastolic dysfunction with dilated cardiomyopathy was noted. Patient's GD MT was held due to hypotension. Her intake and output was strictly maintained. Fluid restriction was maintained. Cardiology consultation was done. Catheterization was performed on 08/03/2025: Which reveals left ventricular ejection fraction 15%, global hypokinesis of left ventricle, severe pulmonary hypertension, right ventricular and pulmonary artery systolic pressure in the range of 70. Normal left main, lad, LCX, marginal artery, large dominant RCA. Patient was explained the procedure, findings, treatment plan thoroughly. All questions were answered. Patient is advised to continue medications and follow up with Cardiology, if her symptoms does not resolve or improve within 3 months, implantable cardioverted defibrillator option was discussed. ABG was performed to evaluate for home oxygen, patient did not qualify for home oxygen. On the day of discharge patient was hemodynamically stable, verbalized understanding of the treatment. All her prescription medications were explained to her. She agreed to follow up with [facility] clinic, PCP and bottling supervisor within 1 week. All her medications were sent the preferred pharmacy. Patient was thankful for the care. Plan discussed with Dr. Rivero, nursing staff, Total time spent on patient evaluation, chart review, assessment and plan, discussion discussion >35 minutes Plan discussed with: Patient, Other (RN) Plan discussed with: Patient, Other (RN) Examination Examination Pt is lying on bed General Appearance: Alert, Oriented X3, Cooperative, Mild distress HEENT: Atraumatic, Mucous membranes moist/pink Respiratory: Mild basilar crackles, Normal air movement, No added sounds Cardiovascular: Regular rate, Normal S1, Normal S2, No murmurs Abdominal/ : Active bowel sounds, Soft, no distention, no tenderness Extremities: 1+ edema, Normal pulses, No tenderness/swelling Skin: No Significant rash, except past surgical scars Neuro: Normal speech, sensorimotor deficits none Psych/Mental Status: Mental status NL, Mood NL Nurse was there as production control supervisor during examination Operations or Procedures PATIENT: ISABEL MCINTYRE ACCT: [id number] UNIT: [id number] : 1970 LOC: ER ROOM / BED: / AGE / SEX: 55 / F ADM STATUS: REG ER SERVICE 2257 ORDERING PHYSICIAN: JEANMARIE KENNEDY MD PROCEDURE(s): CXR1 - CHEST XRAY 1 VIEW REASON: SOB ORDER NUMBER(s): [id number], ACCESSION NUMBER(s): [id number] CLINICAL HISTORY: SOB. TECHNIQUE: Single frontal view of the chest was obtained. COMPARISON: None available. FINDINGS: Lungs: Mild pulmonary vascular congestion. Otherwise, lungs are clear. No consolidation or alyssa pulmonary edema. Pleura: Pneumothorax or conspicuous pleural effusion. Cardiomediastinal silhouette: Moderately enlarged cardiac silhouette. Normal mediastinal silhouette. Bones: No acute osseous abnormality. Imaged Upper Abdomen: Unremarkable. IMPRESSION: Moderate cardiomegaly with mild pulmonary vascular congestion. PATIENT: ISABEL MCINTYRE ACCT: [id number] UNIT: [id number] : 1970 LOC: [facility] ROOM / BED: [facility] / B AGE / SEX: 55 / F ADM STATUS: ADM IN SERVICE 1630 ORDERING PHYSICIAN: SACHI ARIZA PROCEDURE(s): LIVUS - LIVER REASON: ENCEPHALITIS, RULE OUT CIRRHOSIS/STEATOSIS ORDER NUMBER(s): [id number], ACCESSION NUMBER(s): [id number] INDICATION: ENCEPHALITIS, RULE OUT CIRRHOSIS/STEATOSIS TECHNIQUE: Multiple real-time sonographic images of the abdomen were obtained. COMPARISON: None FINDINGS: The liver is homogenous in echogenicity. The liver measures 14.1 cm. No intrahepatic biliary ductal dilatation is noted. The gallbladder wall measures 0.47 cm and is mildly thickened. Questionable shadowing noted from the gallbladder. The common duct Not visible cm and is unremarkable. No pericholecystic fluid is noted. The right kidney measures 11 cm. No hydronephrosis. The pancreas is not well visualized due to obscuration from bowel gas. The visualized portions of the IVC and aorta are grossly unremarkable. IMPRESSION: 1. Common bile duct not visualized. 2. Mild gallbladder wall thickening with acoustic shadowing coming from the gallbladder fossa correlate for history of cholecystectomy. Negative sonographic chavez's sign 3. Right kidney measures 11 cm in length and there is no hydronephrosis or nephrolithiasis. PATIENT: ISABEL MCINTYRE ACCT: [id number] UNIT: [id number] : 1970 LOC: [facility] ROOM / BED: 029 / B AGE / SEX: 55 / F ADM STATUS: ADM IN SERVICE 1101 ORDERING PHYSICIAN: ALEKS BINGHAM RESIDENT PROCEDURE(s): CXRP - CHEST PORTABLE REASON: cough ORDER NUMBER(s): [id number], ACCESSION NUMBER(s): [id number] INDICATION: cough TECHNIQUE: Frontal view of the chest. COMPARISON: XY CHEST XRAY 1 VIEW on DOS: 07/30/25 FINDINGS: . The heart size is enlarged. There are no definite infiltrates. There are no effusions. There is no congestive heart failure. IMPRESSION: 1. Cardiomegaly without acute cardiopulmonary disease. Angiography on 08/03/2025, pending results, we will be discussed at the [place] clinic. Condition at Discharge: Stable Final Diagnosis/Problems List # acute hypoxic respiratory failure likely due to acute on chronic HFrEF # acute on chronic heart failure likely due to HFrEF, ejection fraction 15% # bilateral leg edema likely due to above # NSTEMI type 2 likely due to demand lead ischemia # hypertension # transaminitis # depression # anxiety Discharge Disposition: Home Discharge Instruct/Medications Diet: Cardiac 2g Na,low cholest Activity: No Restrictions, As Tolerated Follow Up/Referral: Follow up outpatient with PCP and Cardiology in [place] [facility] Medications: as per EMR Scheduled Atorvastatin Calcium (Atorvastatin Calcium), 2 TAB PO DAILY Carvedilol (Carvedilol), 1 TAB PO BID Cholecalciferol (Vitamin D3), 1 TAB PO DAILY Empagliflozin (Jardiance), 10 MG PO DAILY Furosemide (Furosemide), 20 MG PO DAILY Spironolactone (Aldactone), 25 MG PO DAILY Discontinued Medications Sacubitril-Valsartan (Entresto 24-26 mg), 1 TAB PO BID, (Reported) Discharge Statement: "Patient was advised to return to the ER or call 911 if any headaches, dizziness, shortness of breath, chest pain, abdominal pain, bleeding, fevers, or worsening of medical condition. Patient was counseled about treatment plan, medications, possible side effects, patientverbalized understanding. All questions were answered to the best of my ability. This discharge took greater then 30 minutes in planning, reviewing documentation, counseling the patient, and discussing with other team members." ASSESSMENT ASSESSMENT Assessment Acute exacerbation of chronic systolic heart failure Visit Coding STANDARD RES Billing Provider: KATHERINE RIVERO MD Date of Service if different f: Aug 04, 2025 Common Visit Codes: 29191-STC/OBS DISCH DAY >30min ALEKS BINGHAM RESIDENT Aug 04, 2025 15:57 KATHERINE RIVERO MD Aug 04, 2025 19:40
--- NOTE | 2025-08-04 23:05 | DVHPN2 ---
Progress Note - Dictate Date Seen: Aug 04, 2025 Medical Necessity Reason Pt with a Central, PICC or Fol: No Subjective Patient was seen and evaluated in follow up. Patient has no new complaints at this time. Patient denies any cardiac symptoms. Patient is cardiac stable for discharge. Telemetry reviewed. vital signs Vital Sign Date Time Temp Pulse Resp B/P (MAP) Pulse Ox O2 Delivery O2 Flow Rate FiO2 08/04/25 12:46 98.3 73 16 92/71 (78) 96 98.3 08/04/25 08:00 Nasal Cannula* 1 24 Total Intake and Output 08/03/25 08/03/25 08/04/25 15:00 23:00 07:00 Intake Total 50 ml 300 ml Output Total 1400 ml Balance -1350 ml 300 ml medications Current Medications Medications Dose Ordered Sig/Suzy Route Start Time Stop Time Status Last Admin Dose Admin Carvedilol 3.125 mg Q12HR PO 07/31/25 10:00 08/04/25 09:36 3.125 MG Aspirin 81 mg DAILY PO 07/31/25 10:00 08/04/25 09:33 81 MG Sodium Chloride 10 ml Q8HR IV 07/31/25 06:00 08/04/25 05:34 10 ML Acetaminophen/ Hydrocodone Bitart 1 tab Q4HP PRN PO 07/31/25 01:00 Ondansetron HCl 4 mg Q4HP PRN IV 07/31/25 01:00 Docusate Sodium 100 mg BIDPRN PRN PO 07/31/25 01:00 Acetaminophen 650 mg Q6HP PRN PO 07/31/25 01:00 Nitroglycerin 0.4 mg Q5MINP PRN SL 07/31/25 01:00 Morphine Sulfate 2 mg Q30M PRN IV 07/31/25 01:00 Spironolactone 25 mg DAILY PO 08/01/25 10:00 08/04/25 09:36 25 MG Empaglifozin 10 mg DAILY PO 08/01/25 10:00 08/04/25 09:43 10 MG Furosemide 40 mg BID IV 07/31/25 22:00 08/02/25 21:37 40 MG Enoxaparin Sodium 40 mg DAILY SC 07/31/25 16:30 Guaifenesin/ Dextromethorphan 10 ml Q4HP PRN PO 08/02/25 11:15 08/04/25 09:36 10 ML objective GENERAL: Alert and oriented x 3. No acute distress. EYES: PERRL, EOMI. Anicteric. HENT: Moist mucous membranes. LUNGS: Clear to auscultation bilaterally. CARDIOVASCULAR: Regular rate and rhythm. ABDOMEN: Soft, nontender and nondistended. EXTREMITIES: No edema. NEUROLOGIC: No focal neurological deficits. SKIN: Warm, dry. laboratory and microbiology Laboratory Tests 08/04/25 06:25 Test 08/04/25 06:25 Range/Units Serum Glucose 102 74-106 mg/dL Problem List Acute hypoxic respiratory failure. Acute on chronic heart failure likely due to HFrEF. Bilateral leg edema likely. NSTEMI type 2 likely due to demand lead ischemia. Hypertension. Transaminitis. Depression. Anxiety. End-stage dilated cardiomyopathy. Pulmonary hypertension. Assessment/Plan Continued all current supportive medical care. Morphine and [place] for pain management. Aspirin. Coreg. DVT prophylactics. Diuretics with Lasix. Additional plan as per the hospital course. Plan discussed with: Patient OLGA MEDRANO MD Aug 04, 2025 13:36
== END 2025-08-04 18:18 | disposition home or self-care (01) | DRG 280 ==
LOC: ER 22:41 → OVERFLOW 07-31 00:54 → TELE-WESTW 07-31 16:26
PROVIDERS: ADMIT Internal Medicine Geriatric Medicine; ATTEND Internal Medicine Geriatric Medicine
PROC: 4A023N8 Measurement of Cardiac Sampling and Pressure, Bilateral, Percutaneous Approach (ICD-10-PCS; principal; 2025-08-03)
PROC: B211YZZ Fluoroscopy of Multiple Coronary Arteries using Other Contrast (ICD-10-PCS; 2025-08-03)
PROC: B215YZZ Fluoroscopy of Left Heart using Other Contrast (ICD-10-PCS; 2025-08-03)
DX: I11.0 Hypertensive heart disease with heart failure (principal); I50.23 Acute on chronic systolic (congestive) heart failure; I21.A1 Myocardial infarction type 2; J96.01 Acute respiratory failure with hypoxia; I27.20 Pulmonary hypertension, unspecified; F32.A Depression, unspecified; I42.0 Dilated cardiomyopathy; F41.9 Anxiety disorder, unspecified; R74.01 Elevation of levels of liver transaminase levels; Z82.49 Family history of ischemic heart disease and other diseases of the circulatory system
CPT/HCPCS: 36415; 36600; 71045; 76705; 80053; 80074; 80307; 81001; 82306; 82607; 82746; 82805; 83036; 83615; 83735; 83880; 84443; 84484; 85025; 93005; 93306; 93460; 96374; 99152; 99291; G0378; J2250; Q9967